=== PATIENT | female | born 1940 | race Caucasian/White ===

== ENCOUNTER → 2019-09-26 | Outpatient (CLI) | payer OTHER | LOC: HYPER 10:23 | DX: T81.89XD Other complications of procedures, not elsewhere classified, subsequent encounter (principal); E11.49 Type 2 diabetes mellitus with other diabetic neurological complication; E78.5 Hyperlipidemia, unspecified; E55.9 Vitamin D deficiency, unspecified; E66.09 Other obesity due to excess calories; D17.9 Benign lipomatous neoplasm, unspecified; D64.9 Anemia, unspecified; I87.2 Venous insufficiency (chronic) (peripheral); I11.0 Hypertensive heart disease with heart failure; I50.32 Chronic diastolic (congestive) heart failure; J69.0 Pneumonitis due to inhalation of food and vomit; J44.9 Chronic obstructive pulmonary disease, unspecified; K52.9 Noninfective gastroenteritis and colitis, unspecified; M51.9 Unspecified thoracic, thoracolumbar and lumbosacral intervertebral disc disorder; M12.869 Other specific arthropathies, not elsewhere classified, unspecified knee; F11.10 Opioid abuse, uncomplicated; F41.1 Generalized anxiety disorder; Z87.891 Personal history of nicotine dependence; Z79.84 Long term (current) use of oral hypoglycemic drugs; Y83.8 Other surgical procedures as the cause of abnormal reaction of the patient, or of later complication, without mention of misadventure at the time of the procedure ==

== ENCOUNTER 2019-10-18 16:13 | Inpatient (IN) | payer OTHER, MEDICARE ==
[~2019-10-18] VITALS: Ht 160 cm; Wt 106.3 kg
--- NOTE | ~2019-10-18 | EEG ---
[facility] [place] [address] ELECTROENCEPHALOGRAM Name: GERRI STANFORD Room #: 216-P [facility] IN M.R.#: [id number] Admission: 10/18/19 Attend Phys: Otto Vasquez MD Discharge: Date of : 42 Report #: [id number] THIS REPORT FOR: //name// CC: Luis Alberto Vasquez DATE OF SERVICE: 10/25/2019 This patient is being evaluated for altered mental status. EEG was done by placing the electrode by standard 10-20 system of electrode placement. The patient is not able to cooperate at all. A lot of artifact is present. Background activity in this patient's EEG is about 7 Hz and 30 microvolts. A lot of artifact is present. Photic stimulation is unremarkable. Some of the activity looked sharp, but is difficult to distinguish from the artifact. IMPRESSION: Very suboptimal EEG because the patient is unable to cooperate. EEG is abnormal, is consistent with encephalopathy or dementia, but some seizure activity cannot be ruled out because the patient is unable to cooperate. By: [id number] Varun Catalan MD /nt
--- NOTE | ~2019-10-18 | EMS ---
[address] [address] EMS Patient Care Report Name: GERRI STANFORD Room #: PRE MJohnathan.#: [id number] Admission: Attend Phys: Discharge: Date of : 42 Report #: [id number] THIS REPORT FOR: //name// Report Transmitted: 10/18/2019 16:13 EMS Care Summary [place], [place]/[facility] Incident [id number] @ 10/18/2019 15:32 Incident Location [address] [place] [address] Patient GERRI STANFORD Female, 79 Years 1940 Patient Address [address] [place] [address] Patient History Diabetes,Hypertension (HTN),Hyperlipidemia,Depression,Anxiety,Back Pain (Chronic), Patient Allergies No known allergies, Patient Medications Ativan, Alprazolam, Percocet, Amitriptyline, Meloxicam, Cymbalta, Hydrochlorothiazide (Hctz), Glipizide, Lisinopril, Toprol, Simvastatin, Chief Complaint PT BELIEVE FAMILY IS TRYING TO GET HER Disposition Transported No Lights/[place] Dispatch Reason Breathing Problem Transported To [facility] Narrative PT STATES THAT PT HAS HAD IT WITH HER FAMILY AND THAT THEY ARE TRYING TO GET HER. PT STATES THAT PT HAS PAON IN HER FEET AND IS SOA. PT STATES THAT PT IS [address] [address] EMS Patient Care Report Name: GERRI STANFORD Room #: [facility].#: [id number] Admission: Attend Phys: Discharge: Date of : 42 Report #: [id number] CHRONICALLY SOA. PT DENIES COUGH, PT DENIES FEVER. PT STATES IN ROUTE THAT SHE WOULD LIKE EMS TO CHECK THE CABINET TO MAKE SURE HER DAUGHTER IN LAY IS NOT HIDDING IN THEM. PT HAS NO OTEHR COMPLAINTS. P WAS FOUND SITTING ON A COUCH IN PT'S HOME. PT SPOKE IN FULL AND COMPLETE SENTENCES. PT IS ABLE TO STAND AND WALK TO THE AMBULANCE. PT HAS NO OTHER OBVIOUS ABNORMALITIES. Initial Vitals @15:58P: 223,SpO2: 92, @16:00P: 169,SpO2: 91, @15:55P: 113,R: 18,Pain: 0/10,GCS: 15,SpO2: 81, @15:56P: 153,R: 18,GCS: 14,Glucose: 130,SpO2: 91, @16:01P: 128,BP: 117/45,SpO2: 89, @15:48P: 101,BP: 177/80,SpO2: 92, Assessments @15:38MENTAL:Person Oriented,Time Oriented,Place Oriented,Event Oriented,SKIN:HEENT:Eyes: Left Pupil: 3-mm,Eyes: Right Pupil: 3-mm,Head/Face: No Abnormalities,Neck/Airway: No Abnormalities,LUNG SOUNDS:General: No Abnormalities,ABDOMEN:General: No Abnormalities,PELVIS//GI:EXTREMITIES:Capillary Refill: Right Upper: < 2 Sec,Left Arm: No Abnormalities,Right Arm: No Abnormalities,Left Leg: No Abnormalities,Right Leg: No Abnormalities,PULSE:Radial: 2+ Normal,NEURO:No Abnormalities, Impression Altered Mental Status Procedures @15:39ALS AssessmentResponse: UnchangedSucceeded@15:423-Lead ECGResponse: UnchangedSucceeded Timeline 15:31,Call Received 15:31,Dispatch Notified 15:32,Dispatched 15:33,En Route 15:37,On Scene 15:38,At Patient 15:39,ALS Assessment,Response: UnchangedSucceeded, 15:42,3-Lead ECG,Response: UnchangedSucceeded, 15:48,BP: 177/80 M,PULSE: 101,RR: R,SPO2: 92 Ox,ETCO2: ,BG: ,PAIN: ,GCS: , 15:54,Depart Scene 15:55,BP: / M,PULSE: 113,RR: 18 R,SPO2: 81 Ox,ETCO2: ,BG: ,PAIN: 0,GCS: 15, 15:56,BP: / M,PULSE: 153,RR: 18 R,SPO2: 91 Ox,ETCO2: ,B,PAIN: ,GCS: 14, [facility] [address] [place] [address] EMS Patient Care Report Name: GERRI STANFORD Room #: [facility].RTino#: [id number] Admission: Attend Phys: Discharge: Date of : 42 Report #: [id number] 15:58,BP: / M,PULSE: 223,RR: R,SPO2: 92 Ox,ETCO2: ,BG: ,PAIN: ,GCS: , 16:00,BP: / M,PULSE: 169,RR: R,SPO2: 91 Ox,ETCO2: ,BG: ,PAIN: ,GCS: , 16:01,BP: 117/45 M,PULSE: 128,RR: R,SPO2: 89 Ox,ETCO2: ,BG: ,PAIN: ,GCS: , 16:08,At Destination 16:12,Call Closed Disclaimer v1.1 Copyright 2020 [employer] This EMS Care Summary contains data elements from the applicable legal record (which may be displayed differently). It is designed to provide pertinent information for the following purposes: continuity of care, clinical quality, and state data reporting. The complete legal record is available to ED staff and administrators of the receiving hospital in [facility]'s Patient Tracker. All data is provided "as is."
--- NOTE | ~2019-10-18 | HC ---
[facility] [place] [address] CONSULTATION Name: GERRI STANFORD Room #: 216-P [facility] IN .R.#: [id number] Admission: 10/18/19 Attend Phys: Otto Vasquez MD Discharge: Date of : 42 Report #: [id number] THIS REPORT FOR: cc: Luis Alberto Lancaster MD, Bernard O. MD Khosla, Parveen K. MD ~ CC: Luis Alberto Vasquez DATE OF SERVICE: 10/25/2019 HISTORY OF PRESENT ILLNESS: A 79-year-old female patient who is unable to provide any history at all. In fact, the patient did not talk and had no verbal output during my evaluation. I tried to call the patient's son on the numbers I have in the chart. I was unable to reach them. Dr. Dietrich updated me on the patient's history. It looks like the patient was having symptoms for more than a week before she came in. It was mostly delusions and she was found to have a UTI and she is being treated, but I do not know the exact baseline mental status in this patient. She apparently was taking also some Xanax and Percocet. She came as hyponatremic and she is still somewhat hyponatremic. REVIEW OF SYSTEMS: A 14-point review of system was attempted. The patient is unable to provide any systemic history, it is all from the record and that is also limited, apparently has a history of diabetes, hypertension, depression, anxiety, back pain as I can get from the record, that was the relevant 14-point review of system. PAST MEDICAL History: Unavailable, but may be having symptoms suggestive of dementia. FAMILY HISTORY: Unavailable. SOCIAL HISTORY: She does have a son and I tried to contact him, but I was unable to reach him. PHYSICAL EXAMINATION: Indicates, she opens her eyes. She did not say a single word. She did not follow any command. She does appear to have some jerking, but they do not appear to be a rene convulsion. I cannot tell if she moves anything, I cannot tell a meningeal sign. She did not allow me to look at the fundus. She is obese individual. Her pulse is 99, temperature is 98, blood pressure is 163/71. Cardiac examination is unremarkable. She does have some respiratory difficulty. LABORATORY DATA: Indicated normal white count, but slightly low sodium; at one time, her magnesium was low. [address] [address] CONSULTATION Name: GERRI STANFORD Room #: 216-P [facility] IN [facility]#: [id number] Admission: 10/18/19 Attend Phys: Otto Vasquez MD Discharge: Date of : 42 Report #: [id number] IMPRESSION: Difficult to form in this patient because I cannot reach the patient's family. It would appear this patient has significant encephalopathy. We need to see how much dementia she has in the baseline and hopefully we can get some assessment of that after we talked to the patient's son. RECOMMENDATIONS: 1. EEG. 2. I agree with your plan that we may have to do an MRI and maybe an LP in this patient depending upon what history we get from the patient's son. Hopefully, he will call us back and we can discuss that. In the meantime, we will go ahead and get an EEG done. Thank you very much for this referral. By: [id number] Varun Catalan MD /nt
[2019-10-18 16:14] VITALS: BP 159/66
[2019-10-18 17:07] LABS: URINE BLOOD NEGATIVE (Negative); URINE CLARITY SL CLOUDY; URINE COLOR YELLOW; URINE GLUCOSE-RANDOM* NEGATIVE (Negative); URINE KETONES NEGATIVE (Negative); URINE NITRITE-REFLEX NEGATIVE (Negative); URINE PROTEIN (DIPSTICK) NEGATIVE (Negative); URINE SPECIFIC GRAVITY 1.025 (1.005-1.035); URINE UROBILINOGEN 0.2 E.U./dl (0.2-1.0)
[2019-10-18 17:13] LABS: URINE BILIRUBIN NEGATIVE (Negative); URINE LEUKOCYTES-REFLEX 1+ (Negative)
[2019-10-18 17:32] LABS: BACTERIA-REFLEX >30 Many /HPF (None Seen); CASTS None Seen /LPF (None Seen); CRYSTALS None Seen /LPF (None Seen); SQUAMOUS 4-10 Moderate /LPF (0-3); URINE WBC-REFLEX 6-15 Few /HPF (0-5)
[2019-10-18 17:33] LABS: URINE RBC 0-2 Rare /HPF (0-2)
[2019-10-18 18:01] LABS: HEMATOCRIT 37.6 % (37.0-47.0); MCH 27.2 pg (26.0-34.0); MCV 84.8 fL (80.0-100.0); PLATELET COUNT 187 thou/uL (150-400); RBC 4.43 mil/uL (4.20-5.00); RDW 15.5 % (10.5-14.5); WBC 6.7 thou/uL (4.0-11.0)
[2019-10-18 18:05] LABS: ANION GAP 6 mmol/L (7-16); BUN 31 mg/dL (7-18); CALCIUM 9.9 mg/dL (8.5-10.1); CHLORIDE 101 mmol/L (98-107); CO2 37 mmol/L (21-32); CREATININE 1.3 mg/dL (0.6-1.0); GLUCOSE 138 mg/dL (74-106); POTASSIUM 3.5 mmol/L (3.5-5.1); SODIUM 144 mmol/L (136-145)
[2019-10-18 18:16] LABS: ALBUMIN 3.6 g/dL (3.4-5.0); SGOT 29 U/L (15-37); SGPT 19 U/L (30-65); TOTAL BILIRUBIN 0.5 mg/dL (<0.1-1.0); TOTAL PROTEIN 6.9 g/dL (6.4-8.2); TROPONIN-I <0.06 ng/mL (<0.06)
[2019-10-18 18:56] LABS: ABSOLUTE NEUTROPHILS 4.1 thou/uL (1.4-8.2); ANISOCYTOSIS 1+; POLYCHROMASIA OCCASIONAL
[2019-10-18] MEDS ORDERED: BUSPIRONE HCL5 MG PO (19:39)
[2019-10-18] MEDS ORDERED: PERCOCET 7.5-31 EAC1 PO (19:40)
[2019-10-18] MEDS ORDERED: CELECOXIB200 MG PO (19:40)
[2019-10-18] MEDS ORDERED: ALPRAZOLAM 0.50.5 M1 PO (19:41)
[2019-10-18] MEDS ORDERED: DULOXETINE HCL60 MG PO (19:41)
[2019-10-18] MEDS ORDERED: ALPRAZOLAM1 MG PO (19:42)
[2019-10-18] MEDS ORDERED: HYDROCHLOROTHIA25 M2 PO (19:42)
[2019-10-18] MEDS ORDERED: LISINOPRIL2.5 MG PO (19:43)
[2019-10-18] MEDS ORDERED: GLIPIZIDE ER5 MG PO (19:43)
[2019-10-18] MEDS ORDERED: PIOGLITAZONE30 MG PO (19:44)
[2019-10-18] MEDS ORDERED: AMITRIPTYLINE H50 M2 PO (19:44)
[2019-10-18] MEDS ORDERED: FUROSEMIDE 40 M40 MG PO (19:45)
[2019-10-18] MEDS ORDERED: PREGABALIN25 MG PO (19:45)
[2019-10-18] MEDS ORDERED: SIMVASTATIN40 MG PO (19:46)
[2019-10-18] MEDS ORDERED: METOCLOPRAMIDE10 MG PO (19:46)
[2019-10-18] MEDS ORDERED: IPRAT-ALBUT 0.5-3 ML INH (19:47)
[2019-10-18] MEDS ORDERED: DULOXETINE HCL30 MG PO (19:50)
[2019-10-18 20:45] VITALS: BP 162/48
--- NOTE | 2019-10-18 20:57 | NUR ---
ATTEMPTED TO CALL REPORT TO CCU AND US STATES SHE WAS NOT AWARE OF THIS AND THERE IS NO NURSE ASSIGNED AND SHE WILL CALL THE HOUSE SUP AND CALL ER AFTER SHE GETS MORE INFO
[2019-10-18 21:59] VITALS: BP 162/48
[2019-10-18 22:39] VITALS: BP 155/74
--- NOTE | 2019-10-18 23:27 | NUR ---
PT ADMITTED FROM HOME. AOX2 PERSON AND SITUATION. PT PRESENTS WITH CONFUSION FOR THE LAST WEEK AND A COUGH. PT A POOR HISTORIAN. PT NOT ABLE TO STATE REASON FOR BEING AT HOSPITAL BUT STATED SHE HAS BEEN TO [facility] PREVIOUSLY. PT REQUESTED AND ASSISTED WITH CALLING HER SON IRA, PT TOLD IRA THAT [facility] IS EMPTYING OUT HER BANK ACCOUNT AND NOT LETTING HER USE HER CARE. PT PRESENTED WITH A RING ON MOST FINGERS, 6 ABLE TO BE REMOVED, 3 REMAIN ON DUE TO SWELLING. PT HAD ON 2 WRIST BRACELETS AND ONE ANKLE BRACELET. BRACELETS REMOVED AND WITH 6 RINGS IN PLASTIC BAG IN ROOM WITH CELL PHONE. PT IS IN ISOLATION FOR COVID R/O. LUNGS DIMINISHED, HR DISTANT, BLE EDEMA +2, PT OBESE, COUGH DRY. PT REPORTS USING A WALKER AT HOME BUT WAS NOT ABLE TO ASSIST WITH TRANSFER FROM ED CART TO BED. PT PRESENTED WITH INCONTINENCE BRIEF ON. BED ALARM ON. IVF INTACT.
--- NOTE | 2019-10-19 01:52 | NUR ---
PT REQUESTED HS MED FOR ANXIETY, PROVIDER NOTIFIED ORDER RECEIVED.
[2019-10-19 03:17] VITALS: BP 169/71
--- NOTE | 2019-10-19 03:31 | NUR ---
PT CALLED OUT FOR NURSE BY YELLING NURSE. PT STATED SHE PEED, FEMALE EXT CATH COLLECTED URINE. PT THEN STATED SHE COULD NOT BREATH, BY POINTING AT HER MOUTH AND MOUTHING WORDS. ROOM AIR 90%, 02 2L NC 94%. PROVIDER NOTIFIED. PT STATED SHE CAN NOT SLEEP BECAUSE SHE DID NOT HAVE HER BEDTIME MEDICATIONS. PT HAS BEEN OBSERVED SLEEPING DURING ROUNDS.
--- NOTE | 2019-10-19 04:58 | NUR ---
PT CALLED OUT FOR NURSE BY BANGING REMOTE ON SIDE RAIL. PT STATED THERE ARE LIGHTS GOING OFF IN HER ROOM, THAT SHE NEEDS TO GET UP AND OUT OF HERE. PT VERBALLY REDIRECTED THAT IT IS TO EARLY IN THE AM TO GO ANYWHERE AND THAT SHE NEEDS MORE ANTIBIOTICS.
--- NOTE | 2019-10-19 05:26 | NUR ---
PT WHEN IN ROOM ASKING STAFF NOT TO LEAVE HER ALONE. PT REDIRECTED WITH TV MOVIE.
[2019-10-19 06:10] LABS: CALCIUM 9.1 mg/dL (8.5-10.1)
[2019-10-19 06:12] LABS: POTASSIUM 2.9 mmol/L (3.5-5.1)
[2019-10-19 06:40] LABS: FOLIC ACID 15.2 ng/mL (8.6-58.9); TSH 1.871 uIU/mL (0.358-3.740)
[2019-10-19] MEDS ORDERED: DICLOFENAC SOD100 G1 TOP (08:07)
[2019-10-19] MEDS ORDERED: TOPROL XL50 MG PO (08:11)
[2019-10-19] MEDS ORDERED: PROTONIX40 M2 PO (08:12)
[2019-10-19] MEDS ORDERED: MIRALAX119 GM PO (08:13)
[2019-10-19] MEDS ORDERED: ASA81BEC PO (08:13)
[2019-10-19] MEDS ORDERED: LIPITOR 20 MG T20 M1 PO (08:14)
[2019-10-19] MEDS ORDERED: PULMICORT0.5 MG/2 M INH (08:14)
--- NOTE | 2019-10-19 08:16 | NUR ---
PATIENT FREQUENTLY YELLING OUT AT STAFF, CONFUSED. ORIENTED TO SELF ONLY. SPOKE WITH PATIENT FAMILY, VERIFIED PATIENT HISTORY AND MEDICATION RECONCILIATION. FAMILY REPORTS PATIENT HAS BECOME DIFFICULT TO CARE FOR. HAS HAD MULTIPLE FALLS SINCE LAST DISCHARGE FROM HOSPITAL AUGUST 2019. STATES THAT SHE WILL START WALKING AND THEN "GIVE UP AND DROP TO GROUND SUDDENLY." FAMILY STATES THAT PATIENT UNABLE TO CARE FOR SELF. REQUIRES ASSISTANCE FOR FOOD PREPARATION, BATHING, TOILETING, ETC. STATES THAT PATIENT BEHAVIOR HAS BEEN ERRATIC LATELY, PATIENT REFUSING MEDS, SECRETIVE WITH FAMILY, CALLING 911 FROM HOME BUT DID NOT TELL FAMILY. REPORTS THAT HAS A PCP- DR. MARCELO LITTLE, & PAIN MANAGEMENT PHYSICIAN - DR. TAYLOR. REPORTS THAT PAIN MANAGEMENT PHYSICIAN MANAGES PAIN & PSYCH MEDS. FALL PRECAUTIONS IN PLACE CURRENTLY, PATIENT DOES NOT USE CALL LIGHT APPROPRIATELY RATHER YELLS OUT FOR STAFF FROM ROOM. PATIENT NOT PROGRESSING TOWARDS GOALS FOR DISCHARGE.
[2019-10-19 08:40] VITALS: BP 190/88
--- NOTE | 2019-10-19 15:23 | NUR ---
ASSESSMENT: CM REVIEWED CHART AND SPOKE WITH ATTENDING. PT WAS ADMITTED DUE TO AMS AND IS COVID RULE OUT. PTS COVID TESTING IS STILL PENDING. CM ATTEMPTED TO REACH PATIENT VIA PHONE TO SEE IF SHE WAS ABLE TO ANSWER AND QUESTIONS BUT PT DID NOT ANSWER PHONE. CM ATTEMPTED TO REACH PATIENTS SON SREEDHAR WHO SHE LIVES WITH BUT NO ANSWER AT THIS TIME AND VM WAS LEFT. PT HAS BEEN TO [facility] IN THE PAST AND PER PAST REPORT PT IS LIVING AT HOME WITH HER SON AND DAUGHTER IN LAW. PT HAS A WALKER, WHEELCHAIR, AND CANE AT HOME FOR AMBULATION. FAMILY REPORTED TO BEDSIDE RN THAT PATIENT HAS BECOME HARD TO CARE FOR AND HAS BEEN VERY CONFUSED. PT HAS HAD [facility] IN THE PAST. CM CONTACTED [facility] AND THEY REPORT THEY DISCHARGED PATIENT IN JULY. PT HAS ALSO BEEN TO [facility] IN THE PAST. PTS PCP IS DR. MARCELO LITTLE AND SHE HAS A PAIN MANAGEMENT PHYSICIAN DR. TAYLOR. CM LEFT FOR FAMILY AND WAITING FOR A CALL BACK TO OBTAIN FURTHER INFORMATION/HISTORY ON PT AT THIS TIME. CM WILL CONTINUE TO FOLLOW TO ASSIST NEEDED.
[2019-10-19 16:14] VITALS: BP 163/93
[2019-10-19 18:52] VITALS: BP 220/130
--- NOTE | 2019-10-19 19:07 | NUR ---
MANUAL BP 220/134 PT GIVEN HS MEDS. HX HTN. NOT SYMPTOMATIC. LUNGS CLEAR, DIMINISHED BASES. HR REG, BS POSITIVE. OBESE. BLE EDEMA +2. IVF INTACT. FEMALE EXT CATH INTACT. PT ALERT TO SELF AND SITUATION. TALKING TO REMOTE AND SELF. CALM TONE. TWO PERSON ASSIST WITH TRANSFERS. BED ALARM ON. PT TRANSFERING TO [facility].
[2019-10-19 19:36] VITALS: BP 169/80
--- NOTE | 2019-10-19 19:50 | NUR ---
Daughter in law notified of room change to 216. Report given to 2N nurse. Pt had all of her belongings transferred with her including rings bracelets and cell phone.
[2019-10-19 23:14] VITALS: BP 177/59
[2019-10-20 04:26] VITALS: BP 155/79
[2019-10-20 05:36] LABS: HEMATOCRIT 34.5 % (37.0-47.0); HEMOGLOBIN 11.1 gm/dL (12.0-15.0); MCH 27.8 pg (26.0-34.0); MCHC 32.1 g/dL (28.0-37.0); MCV 86.6 fL (80.0-100.0); RBC 3.98 mil/uL (4.20-5.00); RDW 15.3 % (10.5-14.5); WBC 7.4 thou/uL (4.0-11.0)
[2019-10-20 05:50] LABS: CALCIUM 9.2 mg/dL (8.5-10.1); CREATININE 0.8 mg/dL (0.6-1.0)
[2019-10-20 06:02] LABS: POTASSIUM 4.6 mmol/L (3.5-5.1)
[2019-10-20 07:30] VITALS: BP 143/116
[2019-10-20 11:00] VITALS: BP 180/93
--- NOTE | 2019-10-20 13:56 | NUR ---
Case discussed with the care team. Hugo seeing and pt noted to be more confused today. Therapy evals pending. No response back from the pt's son yet. DC needs are uncertain pending her progress. Pt normally goes to [facility] for rehab and has had hh with [facility] in the recent past. She was at [facility] less than a month ago and had HH in July this year. She lives with her son and dtr in law and is normally a&ox3 and functional with assist device and supervision from family. Will follow.
[2019-10-20 16:00] VITALS: BP 168/69
--- NOTE | 2019-10-20 18:11 | NUR ---
ASSUMED CARE 0700. ALERT TO SELF ONLY, TALKS ABOUT HER GRANDDAUGHTER PATRICIA. REQUIRES [id number]. NOON MEAL WAS FOUND ON THE FLOOR. PT DENIED DUMPING MEAL. ASSISTED WITH REVENING MEAL ONLY EATING 10% OF MEAL. OFFERED APPLE JUICE FOR LOW BS.DR AMOR NOTIFIED OF ELEVATED BP PT REMAINS SYMPTOM FREE. RECHECK BP USING LOWER ARM WITH BP 157/71 VERSES 170/77 UPPER ARM. INCONITENT OF BLADDER REFUSES EXTERNAL FEMALE CATH. REPOSITIONED TOLERATED. DOES NOT CALL FOR ASSISTANCE. CLOSE TO NURSE STATION FOR OVERSIGHT.STAFF TO ANTICIPATE NEEDS. NSR ON TELE. BED ALARM ON. PERSONAL ITEMS AND CALL LIGHT IN REACH.
[2019-10-20 19:13] VITALS: BP 152/87
[2019-10-21 04:24] VITALS: BP 172/83
[2019-10-21 04:34] LABS: HEMOGLOBIN 10.7 gm/dL (12.0-15.0); MCH 27.7 pg (26.0-34.0); MCHC 32.3 g/dL (28.0-37.0); MCV 85.8 fL (80.0-100.0); RBC 3.85 mil/uL (4.20-5.00); RDW 15.4 % (10.5-14.5); WBC 6.7 thou/uL (4.0-11.0)
[2019-10-21 04:51] LABS: CALCIUM 9.1 mg/dL (8.5-10.1); CREATININE 0.7 mg/dL (0.6-1.0)
[2019-10-21 05:48] LABS: POTASSIUM 3.6 mmol/L (3.5-5.1)
--- NOTE | 2019-10-21 06:51 | NUR ---
PT A0X1. CONFUSED, AND AGITATION AT SOME POINT. DENIES CHEST PAIN. C/O OF BACK PAIN, BUT WHEN GIVEN MEDS, PT THROWS MEDS, REFUSES TO TAKE MEDS. UNABLE TO INTERVENE WITH OTHER RNs. WILL CONTINUE TO MONITOR.
[2019-10-21 07:30] VITALS: BP 182/87
[2019-10-21 11:00] VITALS: BP 157/73
--- NOTE | 2019-10-21 11:34 | NUR ---
PT A&OX2, DELUSIONS, VSS, DENIES PAIN. PATIENT REMOVED IV AND DOCTOR AWARE. PATIENT TOOK MOST OF MEDICATION THIS MORNING. PATIENT ANXIOUS ABOUT DISCHARGING, ABLE TO REDIRECT HALF OF TIMES. NO SIGNS OF DISTRESS. PATIENT CLOSE TO NURSE STATION, BED ALARM ON. WILL CONTINUE TO MONITOR.
[2019-10-21 16:18] VITALS: BP 176/85
[2019-10-21 19:46] VITALS: BP 187/87
[2019-10-22 00:45] VITALS: BP 154/66
[2019-10-22 04:45] VITALS: BP 158/66
--- NOTE | 2019-10-22 07:16 | NUR ---
ASSUME CARE 1900. PT/VITALS STABLE. INTERMITTENT BACK PAIN/DICLOFENAC FOR PAIN. PT IS A/O TO PERSON ONLY AND IMPULSIVE SOMETIMES. NEEDS REDIRECTION WITH TAKING MEDS AND OTHER ACTIVITIES. NO DISTRESS NOTED THROUGH THE NIGHT. MODERATE REST NOTED. ASSESSMENT CHARTED. PROGRESSING MODERATELY WITH POC. PLAN IS CONTINUE WITH ABX TREATMENT AND CONTINUE TO MONITOR LOC. WILL CONTINUE TO FOLLOW [facility] POC
[2019-10-22 08:00] VITALS: BP 169/71
[2019-10-22 11:38] VITALS: BP 192/95
--- NOTE | 2019-10-22 11:54 | EKG ---
[facility] [place] [address] ELECTROCARDIOGRAM REPORT Name: EGRRI STANFORD Room #: 216-P ADM IN M.R.#: [id number] Admission: 10/18/19 Attend Phys: Otto Vasquez MD Discharge: Date of : 42 Report #: [id number] THIS REPORT FOR: cc: Luis Alberto Lancaster MD, Bernard O. MD Couchonnal, Luis F. MD ~ THIS REPORT FOR: //name// [facility] Test Date: 2019-10-21 Test Time: 19:17:55 Pat Name: GERRI STANFORD Department: Room: 216 P Gender: F Carbonizer Tester: CYNDI : 1940 Requested By: Otto Vasquez Order Number: [id number] MD: Derrick Izquierdo Measurements Intervals [place] Rate: 103 P: 34 MI: 65 QRS: -12 QRSD: 106 T: 27 QT: 365 QTc: 478 Interpretive Statements Sinus tachycardia No previous ECG available for comparison Electronically Signed On 10-22-2019 11:53:16 CDT by Derrick Izquierdo [email or web address] <ELECTRONICALLY SIGNED> By: Derrick Izquierdo MD 10/22/19 1153 16 16 Derrick Izquierdo MD /EPI
--- NOTE | 2019-10-22 19:34 | NUR ---
PT ALERT AND ORIENTED TO SELF, PATIENT DELUSIONAL AND HAS VISUAL HALLLUCINATIONS. PATIENT IMPULSIVE, PATIENT CLOSE TO NURSE STATION AND BED ALARM ON. IV RIGHT BREAST REMAINS INTACT. BLOOD PRESSURE ELEVATED, HYDRALAZINE GIVEN PER ORDERS. PATIENT IN NO APPARENT PAIN, NO SIGNS OF DISTRESS. WILL CONTINUE TO MONITOR.
[2019-10-22 20:05] VITALS: BP 159/80
[2019-10-23 03:51] LABS: CALCIUM 9.8 mg/dL (8.5-10.1); CREATININE 0.6 mg/dL (0.6-1.0); POTASSIUM 3.3 mmol/L (3.5-5.1)
[2019-10-23 04:45] VITALS: BP 155/64
[2019-10-23 06:50] LABS: HEMATOCRIT 33.8 % (37.0-47.0); HEMOGLOBIN 10.9 gm/dL (12.0-15.0); MCH 27.2 pg (26.0-34.0); MCHC 32.2 g/dL (28.0-37.0); MCV 84.6 fL (80.0-100.0); RDW 15.6 % (10.5-14.5); WBC 7.2 thou/uL (4.0-11.0)
[2019-10-23 08:00] VITALS: BP 163/63
--- NOTE | 2019-10-23 09:08 | NUR ---
ASSUME CARE 1900. PT/VITALS STABLE. BP RUNS HIGH AT TIMES. INTERMITEENT PAIN IN BACK AND ANKLES. POORLY COMMUNICATES NEEDS. POOR TOLERANCE TO ACTIVITY. ASSESSMETN CHARTED. PROGRESSING SLOWLY WITH POC. REST NOTED WITH NO DISTRESS. PLAN IS TO CONTINUE WITH ABX AND MONITOR LEVEL OF CONCIOUSNESS. WILL CONTINUE TO MONITOR AND FOLLOW WITH POC
[2019-10-23 11:00] VITALS: BP 153/64
[2019-10-23 16:49] VITALS: BP 159/58
[2019-10-23 19:02] LABS: ABSOLUTE NEUTROPHILS 5.9 thou/uL (1.4-8.2); BASOPHILS 0.7 % (0.0-2.0); EOSINOPHILS 6.6 % (0.0-3.0); HEMOGLOBIN 11.4 gm/dL (12.0-15.0); LYMPHOCYTES 20.3 % (24.0-44.0); MCH 27.7 pg (26.0-34.0); MCHC 32.6 g/dL (28.0-37.0); MCV 85.1 fL (80.0-100.0); MONOCYTES 8.3 % (1.0-8.0); PLATELET COUNT 190 thou/uL (150-400); POLYS 64.1 % (36.0-66.0); RBC 4.12 mil/uL (4.20-5.00); RDW 15.6 % (10.5-14.5); WBC 9.1 thou/uL (4.0-11.0)
[2019-10-23 19:14] LABS: CALCIUM 9.3 mg/dL (8.5-10.1); CREATININE 0.5 mg/dL (0.6-1.0); POTASSIUM 4.4 mmol/L (3.5-5.1)
--- NOTE | 2019-10-23 19:20 | NUR ---
Assumed patient care at 0715. Vital signs stable, abdomen is soft and non-tender, BS x's 4, LSCTA (diminished), skin is clean, warm, dry and intact; she denies pain. Patient had an oral Temperature of 99.8 this am, she was given Tylenol 650mg po for this with effectiveness. Patient tried to hit this nurse x's two during am Assessment. Patient asks questions which don't make sense, answers this nurse's questions (again, not making sense). Am medications were crushed, put in applesauce. Patient spit some of the medications out, clenched her jaws tight. Patient was assisted back to bed several x's, as she kept trying to climb out of bed. Dr Vasquez informed about confusion and behaviors; to continue to monitor. Report given to MAURILIO Moy. behavior
--- NOTE | 2019-10-23 19:44 | NUR ---
PT CARE ASSUMED AT 1200. A&Ox4. PT UP AT SUNIL. SLEEPING MOST OF THE AFTERNOON. VITALS STABLE. RUNNING NSR WITH BB. IV PATENT WITH NO REDNESS OR EDEMA, SALINE LOCKED. DAILY WEIGHT AT 0500. HAD 2 LOOSE STOOLS TODAY. 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 FLUID RESTRICTIONS OF 1500ML. CALL CASE MANAGMENT WHEN PT GETS DC SO THEY CAN TAKE HIS SCRIPTS TO THE PHARMACY AND FILL A 30 DAY SUPPLY FOR THE PT. WILL CONTINUE TO MONITOR. CALL LIGHT IN REACH.
[2019-10-23 19:46] VITALS: BP 154/51
--- NOTE | 2019-10-23 19:48 | NUR ---
PT CARE ASSUMED AT 1200. A&Ox1 TO SELF. PT SOUNDED WHEEZY AND PUT ON 3L. AFTER AN HOUR BACK DOWN TO 2L BY RT. INCONTINENT TO B&B. MEDS GIVEN CRUSHED WITH A SPOON OF PUDDING IF ANY OTHER WAY SHE WILL BE COMBATITIVE. NSR WITH BOUTS OF SINUS TACHY. HYDRALIZINE ON BOARD FOR SBP OVER 160 THIS WAS GIVEN TWICE DURING THIS SHIFT. BILATERAL LOWER EDEMA +3. IV R. BREAST WITH NO REDNESS OR EDEMA. SALINE LOCKED. LOW GRADE TEMP RESOLVED. HALDOL PRN GIVEN AT 1800. NO AGITATION FROM 1200 TO 1800. ACHS WITH NO COVERAGE NEEDED TODAY. PT ON ELECTROLYTE PROTOCOL NOW. K 3.3 TREATED PER PROTOCOL AND RESOLVED WITH REDRAW. MAG 1.1 2 BAGS OF MAG GIVEN AWAITING REDRAW RESULTS. DAILY WEIGHT (CHF) PT IS HOME WITH SON BUT WILL NEED TO DO SKILLED OR FACILITY AFTER DISCHARGE. LUNGS CLEAR , DIMINISHED. CALL LIGHT IN RREACH. ALL 4 BED RAILS UP FOR PT SAFETY. Q1 ROUNDING. FALL PROTOCOL IN PLACE. WILL CONTINUE TO MONITOR. VOLTAREN GEL APPLIED FOR PAIN ON BACK AND LEGS.
[2019-10-24 05:05] VITALS: BP 155/58
[2019-10-24 08:00] VITALS: BP 141/54
--- NOTE | 2019-10-24 08:31 | NUR ---
PATIENT ALERT BUT CONFUSED.SPITS ALL HER MEDS LAST NIGHT AND REFUSED HER MEDS THIS MORNING.TRIED TO TAKE OFF HER O2 AND SOUNDS WHEEZY.BREATHING TREATMENT GIVEN BY RT.MONITOR SHOWS ST.POC CONTINUED.
--- NOTE | 2019-10-24 13:21 | NUR ---
Patient with confusion. Sp with hospitalist who reports needs for post acute care. Hospitalist reports patient unable to tolerate acute rehab. Sp with son Adelso and discussed. Plan referral to [facility] to review for skilled care.
--- NOTE | 2019-10-24 14:08 | NUR ---
FAXED REFERRAL TO [facility] SPOKE WITH JOCY IN ADM SHE RECEIVED REFERRAL AND WILL REVIEW. DP TO FOLLOW.
--- NOTE | 2019-10-24 17:01 | NUR ---
FAXED REFERRAL TO [facility] SPOKE WITH HUSAM IN ADM SHE RECEIVED REFERRAL AND WILL REVIEW. DP TO FOLLOW.
--- NOTE | 2019-10-24 18:48 | NUR ---
RECEIVED PT'S CARE AROUND 0710; PT. RESTING WITH EYES CLOSED; EQUAL CHEST RISING NOTICED; SR ON THE MONITOR; DURING AM ASSESSMENT PT. ALERT TO PERSON; NO APPARENT PAIN; RESTLESS; UNCOOPERATIVE; NEW IV STARTED BY IV TEAM; REFUSED BREAKFAST & LUNCH; ABLE TO HAVE AM MEDICATION AFTER WORKING FOR 45 MINS WITH PT.; PHYSICIAN NOTIFIED; PRN HALDOL GIVEN; ABLE TO SWALLOW PILLS; AROUND 1400 BS 55; PRN IV MEDICATION GIVEN; PHYSICIAN NOTIFIED; NO NEW ORDERS; DURING DINNER PT. ATE ABOUT 10%; PHYSICIAN NOTIFIED; ORDERS RECEIVED; SR-ST ON THE MONITOR; ASSESSMENT CHARGED; FOLLOWING POC; WILL PASS ON REPORT;
[2019-10-24 20:48] VITALS: BP 182/63
[2019-10-25 00:18] VITALS: BP 111/78
[2019-10-25 05:05] VITALS: BP 145/76
[2019-10-25 05:46] LABS: CALCIUM 9.3 mg/dL (8.5-10.1); CREATININE 0.6 mg/dL (0.6-1.0); POTASSIUM 3.2 mmol/L (3.5-5.1)
--- NOTE | 2019-10-25 06:23 | NUR ---
pt restless and uncooperative at start of shift repositioned and let rest, crushed meds in pudding and after much encouragement pt swallowed pills, refused and liquids, no c/o pain , vss except bp elevated and prn hydralizine given, pt alert to self and usually will follow directions, will con't to monitor per ppoc.
[2019-10-25 08:00] VITALS: BP 163/71
--- NOTE | 2019-10-25 10:10 | NUR ---
Received asleep on bed, easily rousable then goes back to sleep. Due medications given as prescribed, crushed and mixed with apple sauce. A+O to self, confused, may be combative at times. On heart monitoring- SR-ST; no complaints of chest pain, crushing and heaviness sensation. With O2 at 2lpm via nasal cannula. On carb controlled diet- pt refused breakfast this am, physician informed; encouraged and assisted in eating and drinking. On blood sugar monitoring- taken and recorded; with sliding scale insulin ordered- given as prescribed. With external female chin in place- output measured and recorded accordingly; checked frequently and changed as needed with on and off incontinence. with D5 at 75cc/hr, infusing well at R FA, wrapped with coban. With bruises on her upper and lower extremities. With generalized edema, non weeping noted. Assisted in ADLs. Still a/w placement. With orders to shift IVF from D5 to NS + 20meq KCL- IVF shifted. To continue monitoring patient.
--- NOTE | 2019-10-25 13:12 | NUR ---
[facility] not accepting for post acute care. Sp with son and referral to [facility]. They are able to accept once stable and bed avail. Called son and left message to discuss.
--- NOTE | 2019-10-25 14:53 | NUR ---
FAXED TODAY'S PT NOTES SPOKE WITH HUSAM IN ADM SHE RECEIVED NOTES. DP TO FOLLOW.
[2019-10-25 16:00] VITALS: BP 145/85
[2019-10-25 21:52] VITALS: BP 131/118
--- NOTE | 2019-10-26 03:26 | NUR ---
ASSUMED PATIENT CARE AT 1845. VITAL SIGNS STABLE WITH NURSE NOT PERCEIVING ANY PAIN OR NAUSEA ON BEHALF OF PATIENT. ORIENTED TO SELF ONLY, PATIENT IS UNABLE TO CALL APPROPRIATELY OR ACTIVELY PARTICIPATE IN CARE. BREATHING STABLE EVIDENCED BY ASSESSMENT AND SPOT OXYGENATION CHECKS. PATIENT TURNED FREQUENTLY WITH SKIN CARE PROVIDED. CONTINUE PLAN OF CARE.
[2019-10-26 04:45] VITALS: BP 116/61
[2019-10-26 07:20] VITALS: BP 155/86
--- NOTE | 2019-10-26 12:06 | NUR ---
Received awake on bed. A+O to self only, confused. On O2 at 2lpm via nasal cannula. On heart monitoring- running SR-ST; no complaints of chest pain, crushing sensation and heaviness, no visual signs of noted as well. On carb controlled diet- tried feedng pt but clenchs her teeth and pushes me away from her; encouraged and assisted in eating and drinking. Due medications given as prscribed, crushed and mixed with apple sauce. On blood sugar monitoring, taken and recorded accordingly; with sliding scale insulin ordered- given as prescribed. With external chin in place- output measured and recorded accordingly; checked regularly and changed as needed. Assisted in ADLs. Dr. Dietrich informed re: increased confusion, refusing to eat and with observed tremors on upper then lower extremities this morning- to informed Dr Wills/Dr Bond. With NS + Kcl at 80cc/hr, infusing well at R AC- wrapped in Coban, pt has tendency to pull IV off. Still a/w placement. To continue monitoring patient.
[2019-10-26 12:57] LABS: HEMATOCRIT 30.5 % (37.0-47.0); HEMOGLOBIN 9.9 gm/dL (12.0-15.0); MCH 27.2 pg (26.0-34.0); MCHC 32.4 g/dL (28.0-37.0); MCV 84.1 fL (80.0-100.0); RBC 3.62 mil/uL (4.20-5.00); RDW 15.5 % (10.5-14.5); WBC 6.4 thou/uL (4.0-11.0)
[2019-10-26 13:21] LABS: CALCIUM 8.9 mg/dL (8.5-10.1); CREATININE 0.6 mg/dL (0.6-1.0); MAGNESIUM 1.4 mg/dL (1.8-2.4); POTASSIUM 3.4 mmol/L (3.5-5.1)
--- NOTE | 2019-10-26 16:11 | NUR ---
Attempted to contact Everardo Chang. Left message yesterday and today. Usually leave message and he returns call to unit. He has not returned call as of yet.
[2019-10-26 16:30] VITALS: BP 150/107
[2019-10-26 18:32] LABS: URINE BILIRUBIN 1+ (Negative); URINE BLOOD NEGATIVE (Negative); URINE CLARITY CLEAR; URINE GLUCOSE-RANDOM* NEGATIVE (Negative); URINE KETONES 1+ (Negative); URINE LEUKOCYTES NEGATIVE (Negative); URINE NITRITE NEGATIVE (Negative); URINE PROTEIN (DIPSTICK) NEGATIVE (Negative); URINE SPECIFIC GRAVITY 1.025 (1.005-1.035); URINE UROBILINOGEN 0.2 E.U./dl (0.2-1.0)
[2019-10-26 18:34] LABS: ICTOTEST (BILI CONFIRMATORY) Positive (Negative); URINE COLOR AMBER
[2019-10-26 19:45] VITALS: BP 104/80
--- NOTE | 2019-10-26 20:13 | NUR ---
PATIENT IS LETHARGIC AND UNABLE TO TOLERATE ORAL MEDICATIONS SAFELY.
--- NOTE | 2019-10-26 23:56 | NUR ---
CARE TRANSFERRED TO [facility].
[2019-10-27] VITALS (7 sets, daily range): BP systolic 110–157; BP diastolic 38–115
[2019-10-27 05:20] LABS: CALCIUM 8.5 mg/dL (8.5-10.1); CREATININE 0.4 mg/dL (0.6-1.0); MAGNESIUM 1.4 mg/dL (1.8-2.4); POTASSIUM 4.3 mmol/L (3.5-5.1)
--- NOTE | 2019-10-27 06:38 | NUR ---
ASSUMED PT CARE AROUND 0000. LETHARGIC BUT AROUSABLE AND REACTS TO PAINFUL STIMULI. VSS. NO S/S ACUTE DISTRESS NOTED OR REPORTED AT THIS TIME. WILL CONT TO MONITOR FOR ANY CHANGES IN CONDITION.
[2019-10-27 08:27] LABS: HEMATOCRIT 28.8 % (37.0-47.0); HEMOGLOBIN 9.3 gm/dL (12.0-15.0); MCH 27.4 pg (26.0-34.0); MCHC 32.2 g/dL (28.0-37.0); RBC 3.39 mil/uL (4.20-5.00); RDW 15.9 % (10.5-14.5); WBC 6.5 thou/uL (4.0-11.0)
--- NOTE | 2019-10-27 10:41 | NUR ---
Pt had MRI this am and results are pending. Neuro was able to talk with the pt's son and dtr in law. They will advise if they wish to have LP done as well for neuro workup. [facility] of OP SNF has evaluated and awaiting additional imput regarding her plan of care before making a decision. Will follow.
--- NOTE | 2019-10-27 19:49 | NUR ---
ASSUMED CARE 0700. ORRIENT TO SELF ONLY. LOW BS TREATED WITH DEXTROSE 10%. POOR NUTRIONAL INTAKE. ST CHANGED DIET TO PUREE AND NECTOR LIQUIDS C ASSIT WITH FEEDING. CONFUSION NOT IMPROVING. GENERAL EDEMA SLOW TO IMPROVE. MRI COMPLETED C NO ACUTE PROCESS. BECOMES FUSSY AND TELLS 'STOP" WHEN BOTHERED, WILL STATE SHE IS READY TO GO HOME. MAX ASSISTANCE. DENIES PAIN, DENIES SOB. FALL PRECAUTION IN PLACE. CLOSE TO NURSE STATION FOR OVERSITE. STAFF TO ANTCICPATE NEEDS.
[2019-10-28] VITALS (11 sets, daily range): BP systolic 106–173; BP diastolic 4–83
--- NOTE | 2019-10-28 02:55 | NUR ---
PATIENT ASSESSED AND IS ALERT X 1. SKIN WARM AND DRY. RESP EVEN AND UNLABORED. PATIENT IS M/S TELE. TEL- SHOWS NSR WITH 1ST DEGREE AV BLOCK. DENIES ANY PAIN.TURNS BUT REFUSED UNTIL 0130. EDEMA NOTED REMAINS ON BEDREST.HAS MULTIPLE BRUSING ALL OVER. IS WITHDRAWN AND CONFUSED. CRUSHED MED AND SWOLLOWS WELL. GUZMAN CATH PATENT. HAS GENERAL EDEMA NOTED 2+. IV SITE HEALTHY AND HAS FLUIDS INFUSING WELL. DID TAKE HER MEDS TONIGHT. BS 98. HAS WEAKNESS NOTED. TAKES NECTAR THICKEN FLUIDS. HAS RIGHT FA HEALTHY LOOKING. REMAINS AMS. CONT PLAN OF CARE.
[2019-10-28 08:45] LABS: HEMATOCRIT 29.1 % (37.0-47.0); HEMOGLOBIN 9.3 gm/dL (12.0-15.0); MCH 26.9 pg (26.0-34.0); MCHC 31.9 g/dL (28.0-37.0); MCV 84.3 fL (80.0-100.0); RBC 3.45 mil/uL (4.20-5.00); RDW 15.6 % (10.5-14.5)
[2019-10-28 08:46] LABS: CREATININE 0.5 mg/dL (0.6-1.0); MAGNESIUM 1.6 mg/dL (1.8-2.4); POTASSIUM 3.8 mmol/L (3.5-5.1)
[2019-10-28 08:51] LABS: INR 1.1; PROTIME 11.5 Seconds (9.3-11.4)
[2019-10-28 12:57] LABS: CSF GLUCOSE 84 mg/dL (40-70); CSF PROTEIN 41 mg/dL (15-45)
[2019-10-28 13:07] LABS: CSF RBC 705 /mm3; CSF WBC 9 /mm3 (0-10)
[2019-10-28 13:08] LABS: VOLUME 8 ml
[2019-10-28 13:09] LABS: CSF CLARITY CLEAR; CSF COLOR COLORLESS
--- NOTE | 2019-10-28 14:00 | NUR ---
Nutrition: PO intake minimal/poor > 1 week. Dsyphagia with modified diet/100% assist required. Nsg reports pt clamps down on spoon frequently. S/P lumbar puncture. May consider changing IVFs to Clinimix PPN until po improves or terminal computer operator nutrition plan determined.
--- NOTE | 2019-10-28 15:58 | NUR ---
Pt getting LP today. Mental status a little better per nursing. Nursing has spoken with pt's dtr in law Rosetta and deepa Snyder. Pt's son Everardo PAL at work. Update given to [facility]. No weekend dc anticipated. [facility] will need updated on Thursday and to check their bed status.
[2019-10-28 16:07] LABS: HIV ANTIBODY Non Reactive (Non Reactive)
--- NOTE | 2019-10-28 16:35 | NUR ---
ASSUMED CARE 0700. ALERT X2 MORE AWAKE TODAY AND TALKATIVE. SCHEDULED SPINAL TAB/ LUMBAR PUNCTURE COMPLETED REQUIRED A 2 NURSE VERBAL SPOKE WITH REAGAN MUNIR PT'S NIECE AND DELIO PT'S DAUGHTER IN LAW WHOSE SON IS THE DPOA WHO WAS AWARE OF THE NEED TO SPINAL. DR VERA SPOKE WITH MITZY KIRK ON THE PHONE TO UPDATE PT'S STATUS. RESULTS PENDING. FOLLOWING POST PUCTURE CARE PER ORDERS. TREATED ELEVATE BM AND PAIN WITH PRN MEDICATIONS. ONE TIME LASIX GIVEN. DR BECERRA NOTIFIED OF BM ELEVATIONS. PT VOIDING IMPROVED FROM YESTERDAY GREATER THEN 1200CC AT THIS TIME. NO PLANS TO DC AT THIS TIME. PT UNABLE TO DEMONSTRATE CALL LIGHT USE. STAFF TO ANTICIPATE NEEDS. BED ALARM SET
[2019-10-29 04:08] VITALS: BP 145/72
--- NOTE | 2019-10-29 05:05 | NUR ---
Assumed pt care at 1900. Pt is alert and confused. Pt stated that she wanted to talk to her family. RN spoke to pt's son who said that pt called stating that she was ready to go home. Pt is stable. Denies any pain. Assessment completed and documented. Scheduled meds administered to pt. Tolerated PO intake. Pt sleeps through the night.Turns completed. Continue to monitor pt. Denies any further needs at this time.
[2019-10-29 05:18] LABS: HEMATOCRIT 28.3 % (37.0-47.0); HEMOGLOBIN 9.3 gm/dL (12.0-15.0); MCH 27.9 pg (26.0-34.0); MCHC 33.1 g/dL (28.0-37.0); MCV 84.6 fL (80.0-100.0); RBC 3.35 mil/uL (4.20-5.00); RDW 15.7 % (10.5-14.5); WBC 7.3 thou/uL (4.0-11.0)
[2019-10-29 05:27] LABS: CALCIUM 9.2 mg/dL (8.5-10.1); CREATININE 0.6 mg/dL (0.6-1.0); MAGNESIUM 1.8 mg/dL (1.8-2.4); POTASSIUM 3.4 mmol/L (3.5-5.1)
[2019-10-29 07:15] VITALS: BP 139/51
[2019-10-29 09:02] LABS: ALBUMIN 2.2 g/dL (3.4-5.0); DIRECT BILIRUBIN 0.1 mg/dL (<0.1-0.2); TOTAL BILIRUBIN 0.5 mg/dL (<0.1-1.0); TOTAL PROTEIN 5.8 g/dL (6.4-8.2)
[2019-10-29 11:11] VITALS: BP 108/56
[2019-10-29 17:20] VITALS: BP 146/58
--- NOTE | 2019-10-29 17:41 | NUR ---
ASSUMED CARE 0700. ALERT X3 WITH FORGETFULNESS, VOICED SHE IS AFRAID HER FAMILY DOES NOT KNOW SHE IS AT THE HOSPITAL. NEUROLOGY ROUNDED STATED PT HAS DEMENCIA. PRIMARY DOCTOR MARIAM ORDERED MEDICATIONS FOR CONSTIPATION. NO BM NOTED AT THIS TIME. NRS ON TELE. COMPIANT WITH CARES. TURNS Q2H TOLERATED. NYSTATIN POWDER PLACED UNDER BREAST FOLDS. FALL PRECAUTIONS IN PLACE. CALL LIGHT IN REACH. STAFF TO ANTICIPATE NEEDS.
[2019-10-29 19:30] VITALS: BP 142/72
[2019-10-30] VITALS (7 sets, daily range): BP systolic 136–156; BP diastolic 58–75
--- NOTE | 2019-10-30 05:39 | NUR ---
ASSUMED PT CARE AT 1900. PT IS VERY DROWSY AND SLEEPING. NO SIGN OF DISTRESS NOTED. PT IS AROUSABLE TO COMMAND, ORIENTED TO SELF. NO SIGN OF DISTRESS NOTED IN PT. SCHEDULED MEDS ADMINISTERE TO PT. TOLERTED PO INTAKE. PT HAD BOWEL MOVEMENT. CONTINUE TO MONITOR PT, DENIES ANY FURTHER NEEDS AT THIS TIME.
[2019-10-30 09:09] LABS: CALCIUM 9.2 mg/dL (8.5-10.1); CREATININE 0.5 mg/dL (0.6-1.0); MAGNESIUM 1.5 mg/dL (1.8-2.4); POTASSIUM 3.7 mmol/L (3.5-5.1)
--- NOTE | 2019-10-30 17:42 | NUR ---
PT CARE ASSUMED AT SHIFT CHANGE. PT ASSESSMENTS CHARTED. PT MEDICATIONS CHARTED. PT IS RESPONSIVE. PT HAS POOR APPETITE, BUT DOES DRINK WHATS OFFERED. PT COMPLAINS OF CONSTIPATION, BUT DOES HAVE SMALL LOOSE BM'S. PT PULLED RAC IV, IV THERAPY PLACED LT WRIST IV, WRAPPED.
[2019-10-31] VITALS (7 sets, daily range): BP systolic 144–156; BP diastolic 69–82
--- NOTE | 2019-10-31 05:21 | NUR ---
ASSUMED PT CARE AT 1900,PT IS AWAKE ALERT AND ORIENTEDX3, MAKES NEEDS KNOWN, SR ON THE MONITOR, COMPLAINED OF PAIN ON HER LOWER BACK, MEDICATED WITH DICLOFENAC AND TYL PRN WITH PARTIAL RELIEF, TOOK MEDICATION ORDERED, VSS, ASSESSMENTS CHARTED, PLEASANT AND RESTING IN BED, NO DISTRESS NOTED, WILL CONTINUE TO MONITOR
--- NOTE | 2019-10-31 12:22 | NUR ---
Spoke with patient via phone and son Everardo. Patient appears more alert and able to converse regarding dc planning. Patient has been at [facility] in past and agreeable to 5N eval. Patient may now be able to tolerate acute rehab. Therapy evals in process. [facility] plan if unable to be accepted to 5N.
[2019-10-31 13:08] LABS: CSF VDRL Non Reactive (Non Rea:<1:1)
--- NOTE | 2019-10-31 15:08 | PATH ---
[facility] Nadira Ford [place] [address] PATHOLOGY RPT PROCEDURE Name: GERRI STANFORD Room #: 216-P ADM IN M.R.#: [id number] Admission: 10/18/19 Date of : 44 Discharge: Report #: [id number] Path Case #: [id number] Note LCA Accession Number: [id number] TESTS RESULT FLAG UNITS REF RANGE LAB Clinician Provided Cytology Information No. of containers..01 Other (Miscellaneous) Source: CSF DIAGNOSIS: 02 CSF NEGATIVE FOR MALIGNANT EPITHELIAL CELLS. SCANT CELLULARITY. RARE LYMPHOCYTES IDENTIFIED. NEGATIVE FOR VIRAL INCLUSIONS OR PARASITIC ORGANISMS. Pathologist ICD10: 02 R41.82 Signed out by: Carole Miller MD, Pathologist NPI- [id number] Performed by: Mary Kay Márquez, Furniture Sales Associate ([facility]) Gross description: 01 2 ML, CLEAR COLORLESS, 1 TP /LCS 10/28/2019 1651 Local FLAG LEGEND: L-Low Normal,H-High Normal,LL-Alert Low,HH-Alert High <-Panic Low,>-Panic High,A-Abnormal,AA-Critical Abnormal Performed at: [address] [place] [address] Manuel Ty MD, [address] [address] Carole Miller MD, Performed at: [address], [place], [place] [id number] MD Manuel Ty MD Phone: [phone]
--- NOTE | 2019-10-31 17:58 | NUR ---
PT CARE ASSUMED AT 0700. ASSESSMENTS CHARTED. MEDICATION CHARTED. PT MENTAL STATUS HAS IMPROVED. AO X 4. KUB COMPLETE, NO OBTRUCTION. PT CONTINUES TO HAVE LOOSE STOOLS. PT APPETITE IS STILL POOR. PT TO CHAIR FOR TWO HOURS, MADE IT BACK TO BED WITH ASSIST X 1 AND WALKER. PT COMPLAINS OF LOWER BACK PAIN.
[2019-10-31 22:07] LABS: SYPHILIS AB Non Reactive (Non Reactive)
[2019-11-01 04:45] VITALS: BP 150/66
[2019-11-01 08:00] VITALS: BP 178/72
--- NOTE | 2019-11-01 09:12 | NUR ---
ASSUMED CARE OF PT AT SHIFT CHANGE: SLEEPING, VERY LETHARGIC, TRENDELENDBERG TO REPOSITION UP HIGHER IN BED FOR MEDS AND BFAST. THEN SHE OPENED EYES AND ANSWERED QUESTIONS. VERY WEAK HAND ORACLE TECHNICAL ARCHITECT, VERY EDEMATOUS ALL OVER, CLEAR LUNG SOUNDS, SHALLOW INSPIRATIONS, ENCOURAGED W/DEEP SLOW EFFECTIVE BREATHING. A&0X3, THOUGHT PRESIDENT WAS LOUIS. SLOW TO ANSWER, SMILED WHEN WE TALKED ABOUT HER NIGHT NURSE, ROSENDO. SAID SHE HAD FIVE CHILDREN, LOST TWO. AGAIN, SLOW TO RESPOND, SHOWS LITLE INTEREST IN BFAST. EDUCATION GIVEN ON STRENGTH GAINED IF SHE CAN INGEST. ALL ITEMS OPENED, SHE CAN HOLD THE OJ WHEN ASKED YET JUST SHOWS NO INTEREST. SEE SEPARATE INTERVENTIONS FOR ASSESSMENTS. WILL CONTINUE TO MONITOR
[2019-11-01 10:08] LABS: ANA INTERPRETATION Negative (Negative)
[2019-11-01 12:00] VITALS: BP 155/76
[2019-11-01] MEDS ORDERED: VITAMIN D325 MCG PO (12:39)
[2019-11-01] MEDS ORDERED: ENOXAPARIN40 MG/0.1 SUBQ (12:39)
[2019-11-01] MEDS ORDERED: MAGOX 400400 MG PO (12:39)
[2019-11-01] MEDS ORDERED: DEXAMETHASO0.1 MG/M1 IM (12:39)
[2019-11-01] MEDS ORDERED: SENNA-TIME S T1 EACH PO (12:39)
[2019-11-01] MEDS ORDERED: ACYCLOVIR SODI500 MG IV (12:43)
--- NOTE | 2019-11-01 13:37 | NUR ---
DISCHARGE: WHEN ABLE WILL GATHER PT AND HER BELONGINGS AND TRANSFER UP TO 5N. SHE'LL BE RECEIVING IV MEDS SO WILL LEAVE IV INTACT, AND REMOVE TELE. GIVING REPORT TO 5N RN.
--- NOTE | 2019-11-01 13:59 | NUR ---
Discussed with patient she is accepted to 5N. Patient wanted to think things over. Returned call to patient in room later. She reports she is agreeable to transfer to 5N today. Left message with son to call casemgt.
[2019-11-03 14:28] LABS: HSV PCR SOURCE CSF
== END 2019-11-01 15:58 | DRG 682 ==
LOC: ER 16:13 → EROBS 18:44 → 2N 18:44 → 3W 18:44 → 2N 10-19 19:16
PROVIDERS: Emergency Medicine; Internal Medicine; Nurse Practitioner Family; Psychiatry & Neurology Psychiatry; Specialist; ADMIT Hospitalist
PROC: B01B1ZZ Fluoroscopy of Spinal Cord using Low Osmolar Contrast (ICD-10-PCS; principal; 2019-10-28)
PROC: 009U3ZX Drainage of Spinal Canal, Percutaneous Approach, Diagnostic (ICD-10-PCS; principal; 2019-10-28)
DX: N17.0 Acute kidney failure with tubular necrosis (principal); G92 Toxic encephalopathy; N39.0 Urinary tract infection, site not specified; E87.1 Hypo-osmolality and hyponatremia; Z68.41 Body mass index [BMI] 40.0-44.9, adult; F39 Unspecified mood [affective] disorder; E11.9 Type 2 diabetes mellitus without complications; I10 Essential (primary) hypertension; E78.5 Hyperlipidemia, unspecified; F32.9 Major depressive disorder, single episode, unspecified; F41.9 Anxiety disorder, unspecified; R41.0 Disorientation, unspecified; E55.9 Vitamin D deficiency, unspecified; F03.90 Unspecified dementia, unspecified severity, without behavioral disturbance, psychotic disturbance, mood disturbance, and anxiety; E87.6 Hypokalemia; K59.00 Constipation, unspecified; R13.10 Dysphagia, unspecified; G89.29 Other chronic pain; M54.9 Dorsalgia, unspecified; E66.9 Obesity, unspecified; I77.6 Arteritis, unspecified; Z20.828 Contact with and (suspected) exposure to other viral communicable diseases; Z79.82 Long term (current) use of aspirin; Z79.899 Other long term (current) drug therapy
CPT/HCPCS: 10081; 10879

== ENCOUNTER 2019-11-01 14:52 | Inpatient (IN) | payer OTHER, MEDICARE ==
[~2019-11-01] VITALS: Ht 157.5 cm; Wt 112.9 kg
--- NOTE | ~2019-11-01 | H ---
[facility] [place] [address] HISTORY AND PHYSICAL Name: GERRI STANFORD Room #: 503-P ADM IN M.R.#: [id number] Admission: 11/01/19 Attend Phys: Kendrick Yang MD Discharge: Date of : 44 Report #: [id number] THIS REPORT FOR: cc: Luis Alberto Lancaster MD, Bernard O. MD Smithson,Kendrick Davis MD ~ CC: Luis Alberto Yang DATE OF SERVICE: 11/01/2019 HISTORY AND PHYSICAL AND POSTADMISSION PHYSICIAN EVALUATION HISTORY OF PRESENT ILLNESS: The patient is a 79-year-old white female originally admitted to [facility] on 10/18/2019 with mental status changes, delusions. Family was concerned. She underwent an LP revealing elevated RBC, but normal protein. She had an elevated sed rate. Infectious Disease and Neurology are involved. She was placed on dexamethasone and IV acyclovir until HSV PCR results back. Concerns for vasculitis per Neurology. She was initially treated with antibiotics for urinary tract infection, but culture returned negative and antibiotics were stopped. Psychiatry was also involved and she has had several medications changes and her mentation has improved. Per family report, she is typically alert and oriented x 3. MRI of the brain showed no acute changes. Psychiatry has continued to follow as the patient has a prior history of depression. They note that she has decreased insight into how cognitively impaired she was. Infectious Disease is continuing the patient on the acyclovir awaiting HSV testing from CSF. Syphilis antibodies were noted to be negative. The patient has had a significant functional decline from her premorbid status and has now been admitted for acute in-hospital inpatient rehabilitation. PAST MEDICAL HISTORY: Prior medical history includes diabetes mellitus, hypertension, hyperlipidemia, depression, anxiety, back pain, exogenous obesity. MEDICATIONS: Please see the full medication listing. ALLERGIES: No known drug allergies. SOCIAL HISTORY: The patient lives with her son and [id number] in a house. She notes that they live with her. No steps in, ranch style. Son works outside of the home, but the [id number] is there and can assist. She used a front-wheeled walker and was independent with ADLs. Family provides IADLs. REVIEW OF SYSTEMS: Does not like the Winkler catheter. No chest pain, shortness of breath or abdominal discomfort. She was not aware that she was told she had swallowing issues. She is on a pureed nectar thickened liquid diet as per [address] [address] HISTORY AND PHYSICAL Name: GERRI STANFORD Room #: 503-P [facility]#: [id number] Admission: 11/01/19 Attend Phys: Kendrick Yang MD Discharge: Date of : 42 Report #: [id number] speech therapy recommendations. PHYSICAL EXAMINATION: GENERAL: The patient is 79-year-old obese white female in no obvious distress. VITAL SIGNS: Last recorded temperature 98.6, pulse 98, respirations 18, blood pressure 137/72. NEUROLOGIC: She is alert, definite latency to her responses, but will follow basic 1 step commands. She has decreased insight into her deficits. HEENT: Facies appeared symmetric. CHEST: Sounded clear to auscultation. CARDIOVASCULAR: Regular rate and rhythm. ABDOMEN: Obese, bowel sounds positive, nontender. GENITOURINARY AND RECTAL: She does have the indwelling Winkler catheter. EXTREMITIES: She has functional range of motion of both upper extremities. Strength is probably a grade 3+/5. Lower extremities, nonpitting edema. Strength is probably grade 3+/5. No obvious foot drop. Tone appeared to be intact. She is probably at least a 3+/5, bilateral lower extremity strength. Sit to stand has been mod assist and she has been able to take a few steps mod assist with a front-wheeled walker to the chair. She does have significant exogenous obesity. Last recorded height 5 feet 2 inches, weight 249 pounds. The patient is on nasal prong O2, 2 liters. ASSESSMENT: A 79-year-old female with the following problem list: 1. Toxic metabolic encephalopathy. 2. Elevated sedimentation rate with possible vasculitis. On acyclovir as per Infectious Disease. 3. Dysphagia, currently on pureed nectar. Speech therapy to follow. 4. Medical ____ with generalized debilitation. 5. Chronic back pain. 6. Type 2 diabetes mellitus. 7. Hypertension. 8. Obesity. 9. Documentation of underlying dementia. PLAN: The patient is admitted for acute in-hospital inpatient rehabilitation. From a postadmission physician evaluation perspective, there are no relevant changes since the preadmission screening. Please see the above review of prior and current medical and functional conditions and comorbidities. Please see the patient's previous and current functional status. As far as risk of complications, the patient has multiple medical comorbidities as noted above. Initial plan of care involves the interdisciplinary acute inpatient rehabilitation program. Measurable functional goals would be for the patient to become modified independent with transfers, mobility, ADLs, swallowing and cognition or at least improved cognition to the point where she is at a functional level where she can return back to the home setting. Prognosis is reasonably good with estimated length of stay probably 10 days to [address] [address] HISTORY AND PHYSICAL Name: GERRI STANFORD Room #: 503-P ADM IN ..#: [id number] Admission: 11/01/19 Attend Phys: Kendrick Yang MD Discharge: Date of : 44 Report #: [id number] potentially longer. Potential barriers would include her multiple medical comorbidities and decreased functional status. The patient meets diagnostic criteria for an acute in-hospital inpatient rehabilitation stay. She meets medical necessity criteria. We will have the sap consultant physicians continue to follow. She does have the tolerance for therapies and has appropriate discharge goals back to the home setting. By: [id number] Kendrick Yang MD /nt
--- NOTE | ~2019-11-01 | PLAN ---
[facility] [place] [address] REHAB UNIT PLAN OF CARE Name: GRERI STANFORD Room #: 503-P ADM IN M.R.#: [id number] Admission: 11/01/19 Attend Phys: Kendrick Yang MD Discharge: Date of : 44 Report #: [id number] THIS REPORT FOR: //name// CC: Luis Alberto Yang DATE OF SERVICE: 11/04/2019 PROGRESS NOTE/OVERALL PLAN OF CARE SUBJECTIVE: The patient was seen earlier today in no distress. Temperature 36.6, pulse 90, respirations 18, and blood pressure 151/64. She has been working in therapies with sit to stand, standby assistance. We are monitoring her lower extremity lymphedema. She has been able to ambulate up to 50 feet contact guard with a front-wheeled walker. She is max assist, lower body dressing. She does have moderate memory and cognitive deficits that are noted. Appreciate Neurology followup. They note that her encephalopathy has improved. She continues on acyclovir and she is on steroids. ASSESSMENT: 1. Metabolic encephalopathy. 2. Elevated sedimentation rate with possible vasculitis. 3. Medical complex with generalized debilitation. 4. Dysphagia. The patient is seen by Speech Therapy and is on a mechanical soft, thin liquid diet. 5. Chronic back pain. 6. Diabetes mellitus type 2. 7. Hypertension. 8. Underlying dementia. 9. Obesity. PLAN: The overall plan of care is based on the preadmission screen, post-admission physician evaluation and information garnered from therapy assessments. 1. Estimated length of stay is probably at least 7-10 days. 2. Medical prognosis is reasonably good. 3. Anticipated interventions includes the interdisciplinary acute inpatient rehabilitation program. 4. Anticipated functional outcomes would be for the patient to improve with mobility and ADLs as well as overall cognition so that she can achieve prior functional level with the front-wheeled walker to improve as far as overall cognition and swallowing issues. 5. Discharge destination would be back home with son and [id number]. 6. Expected therapy by discipline includes PT, OT and speech 1 hour per day [address] [address] REHAB UNIT PLAN OF CARE Name: GERRI STANFORD Room #: 503-P [facility] IN M.R.#: [id number] Admission: 11/01/19 Attend Phys: Kendrick Yang MD Discharge: Date of : 44 Report #: [id number] each five days a week throughout the duration of the acute inpatient rehabilitation stay. By: [id number] Kendrick Yang MD /PMT
[~2019-11-01 14:52] MED LIST: ACYCLOVIR SODI500 MG IV; ALPRAZOLAM 0.50.5 M1 PO; ALPRAZOLAM1 MG PO; AMITRIPTYLINE H50 M2 PO; ASA81BEC PO; BUSPIRONE HCL5 MG PO; CELECOXIB200 MG PO; DEXAMETHASO0.1 MG/M1 IM; DICLOFENAC SOD100 G1 TOP; DULOXETINE HCL30 MG PO; DULOXETINE HCL60 MG PO; ENOXAPARIN40 MG/0.1 SUBQ; FUROSEMIDE 40 M40 MG PO; GLIPIZIDE ER5 MG PO; HYDROCHLOROTHIA25 M2 PO; IPRAT-ALBUT 0.5-3 ML INH; LIPITOR 20 MG T20 M1 PO; LISINOPRIL2.5 MG PO; MAGOX 400400 MG PO; METOCLOPRAMIDE10 MG PO; MIRALAX119 GM PO; PERCOCET 7.5-31 EAC1 PO; PIOGLITAZONE30 MG PO; PREGABALIN25 MG PO; PROTONIX40 M2 PO; PULMICORT0.5 MG/2 M INH; SENNA-TIME S T1 EACH PO; SIMVASTATIN40 MG PO; TOPROL XL50 MG PO; VITAMIN D325 MCG PO
--- NOTE | 2019-11-01 17:40 | NUR ---
ADMITTED TO ROOM 503. PATIENT IS ALERT AND ORIENTED X4. PATIENT WADE'S, SELECT BANKER ARE EQUAL. LUNGS ARE CLEAR AND DEMINISHED. ABD IS SOFT WITH BSX4. PATIENT HAS 3+ EDEMA IN HER LOWER EXTREMITIES. UP IN RECLINER FOR MEALS. S.L. PATIENT AND INTACT IN PATIENTS LEFT FORARM. ABD IS SOFT WITH BSX4. FALL AND SAFETY PROTOCOLS IN PLACE. C/O LOWER BACK PAIN. MEDICATED WITH SCED OINTMENT. PLAN P.T., S.T. , O.T. WILSON IN A.M. WILL CONTINUE TO MONITER.
[2019-11-01 19:13] VITALS: BP 174/71
[2019-11-01 23:24] VITALS: BP 137/72
--- NOTE | 2019-11-02 03:13 | NUR ---
Assumed pt care at 1900. A/OX4,BP elevated at HS 174/71 medicated with scheduled BP meds and effective 137/72. Pt's up with AX2, RW/GB,unsteady and weak gait. C/o right knee pain/headache, order obtained for Tylenol from Niurka MAHONEY and administered with relief reported. Winkler to DD with yellow urine noted. Edema 3+ on BLE elevated when laying down. Refuses to put SCDs at this time. Fall precautions implemented,pt calls apropp. Resting quietly oxygen in place @2L/NC will continue to monitor pt.
[2019-11-02 06:22] LABS: HEMATOCRIT 30.7 % (37.0-47.0); HEMOGLOBIN 10.1 gm/dL (12.0-15.0); MCH 27.1 pg (26.0-34.0); MCHC 32.8 g/dL (28.0-37.0); MCV 82.5 fL (80.0-100.0); RBC 3.72 mil/uL (4.20-5.00); RDW 15.2 % (10.5-14.5); WBC 6.3 thou/uL (4.0-11.0)
[2019-11-02 06:38] LABS: CREATININE 0.6 mg/dL (0.6-1.0); POTASSIUM 3.8 mmol/L (3.5-5.1)
[2019-11-02 08:00] VITALS: BP 96/61
--- NOTE | 2019-11-02 09:58 | NUR ---
ASSUMED CARE AT 0700. PAITENT IS ALERT AND ORIENTED X3. PATIENT WADE, FISH FLIPPER ARE EQUAL. LUNGS ARE CLEAR AND DEMINISHED. 02 AT 2L PER N/C. ABD IS SOFT WITH BSX4. PATIENT HAS GUZMAN TO DD, DRAINING PATTI COLORED URINE WITH SEDIMENT. N.P. HERE TO SEE PATIENT. UP IN W/C FOR MEALS. PATIENT HAS 3+L.E. EDEMA. FALL AND SAFETY PROTOCOLS IN PLACE. C/O CHRONIC BACK, KNEE PAIN. MEDICATED WITH PRN PAIN MEDS. CONTINUES TO PROGRESS TOWARDS D/C GOALS. WILL CONTINUE TO MONITER.
[2019-11-02 11:59] LABS: URINE BILIRUBIN NEGATIVE (Negative); URINE BLOOD 3+ (Negative); URINE CLARITY CLOUDY; URINE COLOR YELLOW; URINE GLUCOSE-RANDOM* NEGATIVE (Negative); URINE KETONES NEGATIVE (Negative); URINE NITRITE-REFLEX NEGATIVE (Negative); URINE PROTEIN (DIPSTICK) NEGATIVE (Negative); URINE UROBILINOGEN 0.2 E.U./dl (0.2-1.0)
[2019-11-02 12:00] LABS: URINE LEUKOCYTES-REFLEX 3+ (Negative)
--- NOTE | 2019-11-02 12:10 | NUR ---
Case opened to follow for dc planning. Pt known to cm from previous admissions. Pt normally goes to [facility] for rehab and has [facility] for HH followup. She lives with her son Everardo Kevin Jr (Adelso) and dtr in law Rosetta. Adelso works and is often not able to take calls during the work day. Message left for him or DIL Rosetta to contact cm to discuss dc planning needs and to see what concerns or questions they may have. The pt has a rwalker, w/c and cane at home. When they spoke with Neuro on acute care, they noted her memory has declined and she has been requiring more supervision assist with adl's. They provide for all IADL's. The pt is currently on o2 at 2liters. [facility] to be contact for likely restart of care when ready for dc home from rehab. [facility] OP SNF may be an option for a SNF stay if needed ;however the pt's goal is to return home with hh at md. Pt's son brought some of her clothing and cell wire wrapping machine operator by for her last night. Will followup with pt's family regarding any barriers or questions they may have. Dc plan at this time is to return home with family and hh services. Pt's mental status is improving and she is able to participate in dc planning converstaion via phone. Will follow.
[2019-11-02 12:11] LABS: CASTS None Seen /LPF (None Seen); SQUAMOUS 4-10 Moderate /LPF (0-3)
[2019-11-02 12:12] LABS: BACTERIA-REFLEX >30 Many /HPF (None Seen); CRYSTALS None Seen /LPF (None Seen); URINE RBC >20 Many /HPF (0-2); URINE WBC-REFLEX >25 Many /HPF (0-5)
[2019-11-02 12:13] LABS: YEAST-REFLEX Present (None Seen)
--- NOTE | 2019-11-02 13:27 | NUR ---
FAXED REFERRAL TO [facility] SPOKE WITH WALLY IN INTAKE SHE RECEIVED REFERRAL AND CAN ACCEPT AT DC. DP TO FOLLOW.
[2019-11-02 13:28] VITALS: BP 137/72
[2019-11-02 19:10] VITALS: BP 152/80
[2019-11-03 00:07] LABS: GLYCOHEMOGLOBIN (HGB A1C) 5.7 % (4.8-5.6)
--- NOTE | 2019-11-03 02:00 | NUR ---
TRAZADONE TWICE AT HS, PATIENT DENIES SLEEPING. TURNED TO LEFT SIDE WITH ASSIST AND PILLOW AT BACK WITH LEGS ELEVATED AND WRAPPED. INFORMED OF CATHETER REMOVAL LATER THIS MORNING.
[2019-11-03 08:00] VITALS: BP 157/58
--- NOTE | 2019-11-03 18:43 | NUR ---
ASSUMED CARE OF PT AT 0700. PT IS A&OX4, FLAT AFFECT, AND FORGETFUL. PT REPORTS PAIN, PO MEDICATIONS PROVIDED PER ORDERS. GUZMAN CATHETER REMOVED PRIOR TO SHIFT CHANGE AND PT VOIDED WITH NO RESIDUAL NOTED ON BLADDER SCAN. REPORTED NAUSEA FOLLOWING BREAKFAST, TREATED WITH PO MEDICATIONS. REPORTS POOR SLEEP OVERNIGHT. IV TO LEFT WRIST PATENT. ACCU CHECKS ACHS. FALL PRECAUTIONS IN PLACE AND NURSING WILL CONTINUE TO MONITOR.
[2019-11-03 19:41] VITALS: BP 149/61
--- NOTE | 2019-11-04 00:44 | NUR ---
PT ASSESSMENT COMPLETED AND VSS. MEDS GIVEN ORDERED AND WELL TOLERATED. FALL PRECAUTIONS IN PLACE. VOIDING MODERATE AMOUNT OF YELLOW URINE. ASST WITH REPOSITION FOR COMFORT. PT DID NOT WANT A GOWN AT BEDTIME. SLEEPING AND PAIN MEDICATION WORKING WELL. PT SLEEPING. WILL CONTINUE TO MONITOR FREQUENTLY.
[2019-11-04 07:20] VITALS: BP 151/64
--- NOTE | 2019-11-04 19:20 | NUR ---
ASSUMED CARE OF PT AT 0700. PT IS A&OX4 AND VITAL SIGNS ARE STABLE. PT APPEARED SEDATED THIS AM AND SLEPT THROUGH PHYSICAL ASSESSMENT. GRIMICE WITH PAINFUL STIMULI. ACCU CHECKS ACHS. IV TO LEFT WRIST PATENT. PT ENCOURAGED TO DRINK FLUIDS. PT INCONTINENT, STATED THAT SHE WAS ABLE TO RECOGNIZE THAT SHE WAS INCONTINENT IN BRIEF, BUT DID NOT WANT TO GET UP AT THAT TIME TO BE CHANGED. PAIN MANAGED WITH PO MEDICAITONS. PER LYMPHEDEMA THERAPIST PT REFUSED TO ALLOW FOR WRAPS TO BE REPLACED THIS SHIFT. FALL PRFECAUTIONS IN PLACE AND NURSING WILL CONTINUE TO MONITOR.
[2019-11-04 19:55] VITALS: BP 133/59
--- NOTE | 2019-11-05 03:47 | NUR ---
ASSUMED CARE APPROX 1900 EVENING 11/03. PT ALERT AND ORIENTED X4, SITTING UP IN RECLINER AT CHANGE OF SHIFT. PT REFUSED TO TAKE STOOL MEDS STATING SHE HAD "A BLOWOUT A COUPLE DAYS AGO". PT INCONTINENT OF URINE ASSISTED WITH BRIEF CHANGE AND INTO BED. PT TOOK HS MEDS WITH WATER TOLERATING WELL. PT APPEARS TO BE SLEEPING SOUNDLY WITH HOURLY ROUNDING. BED ALARM ON AND CALL LIGHT IN REACH. WILL CONTINUE TO MONITOR.
[2019-11-05 07:52] VITALS: BP 145/68
--- NOTE | 2019-11-05 10:51 | NUR ---
ASSUMED CARE AT 0700. PATIENT IS ALERT AND ORIENTED X4. PATIENT WADE'S, LIFE TESTER OUTBOARD MOTORS ARE EQUAL. LUNGS ARE CLEAR. ABD IS SOFT WITH BSX4. MIRALAX GIVEN FOR NO BM X3 DAYS. PT UP IN W/C AND OUT TO DINING ROOM FOR MEALS. S.T. HERE TO EVAL PATIENTS SWALLOWING. MEDS GIVEN WITHOUT DIFFICULTY SWALLOWING. PATIENT C/O BACK AND KNEE PAIN. MEDICATED WITH PRN PAIN MED. PATIENT C/O NAUSEA. PATIENT MEDICATED WITH PRN ANTIEMETIC. FALL AND SAFETY PROTOCOLS IN PLACE. C/O PAIN ABOVE, WITH ABOVE TX. UP WITH ASSIST OF 1 STAFF WITH GAIT BELT AND WALKER. WILL CONTINUE TO MONITER.
[2019-11-05 19:58] VITALS: BP 132/52
--- NOTE | 2019-11-06 01:10 | NUR ---
ASSUMED CARE AT APPROX 1900 EVENING 11/04. PT LYING IN BED AT CHANGE OF SHIFT DOZING OFF AND ON WITH HEAD OF BED ELEVATED. PT AWOKE TO TAKE HS MEDS WITH NO PROBLEMS AND THEN PT WENT BACK TO SLEEP. PT APPEARS TO BE SLEEPING SOUNDLY WITH HOURLY ROUNDING CHECKS. BED ALARM ON AND CALL LIGHT IN REACH. WILL CONTINUE TO MONITOR.
[2019-11-06 07:31] VITALS: BP 150/71
--- NOTE | 2019-11-06 16:02 | NUR ---
ASSUMED CARE AROUND 0700, PT A&O X 4, NO ACUTE CHANGES NOTED. VSS, O2 ON 2L VIA NC. PT C/O BACK PAIN RELIEVED WITH PRN NORCO. ALSO HAS ANASTASIYA VOLTERAN GEL. MEDS GIVEN PER ORDERS, PARTICIPATED IN ANASTASIYA THERAPIES. BG ACHS WITH SS NEEDED. INCONTINENT OF B&B, LARGE BM TODAY, BROWN AND SOFT. PT SLEEPING IN BED, CALL LIGHT WITHIN REACH, WILL CONTINUE TO MONITOR PER POC.
[2019-11-06 19:22] VITALS: BP 132/52
--- NOTE | 2019-11-06 23:13 | NUR ---
PT ASSESSMENT COMPLETED AND VSS. MEDS GIVEN ORDERED AND WELL TOLERATED. FALL PRECAUTIONS IN PLACE. SLEEPING MEDICATION WORKING WELL. ASST WITH REPOSITION FOR COMFORT. SAT WNL ON 2L NC. INC OF LARGE AMOUNTS OF URINE. MAAME CARE PROVIDED. SLEEPING WELL. WILL CONTINUE TO MONITOR FREQUENTLY.
[2019-11-07 06:02] LABS: HEMOGLOBIN 10.5 gm/dL (12.0-15.0); MCH 26.8 pg (26.0-34.0); MCHC 31.9 g/dL (28.0-37.0); MCV 84.1 fL (80.0-100.0); PLATELET COUNT 317 thou/uL (150-400); RBC 3.92 mil/uL (4.20-5.00); RDW 15.9 % (10.5-14.5); WBC 11.2 thou/uL (4.0-11.0)
[2019-11-07 06:17] LABS: CALCIUM 8.9 mg/dL (8.5-10.1); CREATININE 0.6 mg/dL (0.6-1.0); MAGNESIUM 2.2 mg/dL (1.8-2.4); POTASSIUM 4.4 mmol/L (3.5-5.1)
[2019-11-07 07:20] VITALS: BP 122/70
[2019-11-07 11:16] LABS: ABSOLUTE NEUTROPHILS 7.6 thou/uL (1.4-8.2); ANISOCYTOSIS 1+; METAMYELOCYTES 7 %; MYELOCYTES 3 %
--- NOTE | 2019-11-07 18:56 | NUR ---
ASSUMED CARE OF TP AT 0700. PT IS A&OX4 AND VITAL SIGNS ARE STABLE. PT IS MORE EXPRESSIVE THIS SHIFT AND SAYS THAT SHE FEELS LESS DEPRESSED TODAY. PT DID REPORT SOME CONCERNS ABOUT ANTI-DEPRESSANT MEDICATIONS THIS EVENING PRIOR TO SHIFT CHANGE, INFORMED PT WILL DISCUSS WITH PROVIDER. PT REPORTED PAIN, MANGED WITH PO MEDICATIONS, PARTICIPATED IN SCHEDULED THERAPIES. ACCU CHECKS ACHS. FALL PRECAUTIONS IN PLACE AND NURSING WILL CONTINUE TO MONITOR.
--- NOTE | 2019-11-07 23:41 | NUR ---
PT ASSESSMENT COMPLETED AND VSS. MEDS GIVEN ORDERED AND WELL TOLERATED. FALL PRECAUTIONS IN PLACE. UP TO THE BATHROOM EARLY DURING THE SHIFT. INC OF URINE. PRN PAIN MEDICATION HELPFUL. PT ANXIOUS TO GO HOME SOON. ASST WITH REPOSITION AND MAAME CARE. SLEEPING. WILL CONTINUE TO MONITOR FREQUENTLY.
[2019-11-08 07:10] VITALS: BP 142/81
--- NOTE | 2019-11-08 13:48 | NUR ---
team meeting, recommendation: going to need assist with adl's at home. will need to see how much assistance vs supervision son and daughter in law can provide. if family can, dc 11/15 hh ( pt, ot, st, nursing ) family training. outpt neuro pysch [phone] 3m post dc if family would like pt eval. raza oquendo hh.
--- NOTE | 2019-11-08 16:57 | NUR ---
[facility] CAN ACCEPT AT DC SPOKE WITH SIDNEY THAT DC DATE IS 11/15 AND PT WILL NEED PT, OT, ST, NURSING. DP TO FOLLOW
--- NOTE | 2019-11-08 19:48 | NUR ---
ASSUMED CARE OF PT AT 0700. PT IS A&OX4 AND VITAL SIGNS ARE STABLE. PT REPORTED PAIN, MANAGED WITH PO MEDICAITONS, PARTICIPATED IN SCHEDULED THERAPIES. ACCU CHECKS ACHS. PT UPSET THIS EVENING BECAUSE SHE STATES THAT SHE WANTED TO GO HOME BY END OF THIS WEEK AND STAETD THAT SHE ONLY AGREED TO STAY FOR 2 WEEKS. WHEN EXPLAINED TO HER THAT DISCHARGE GOAL IS FOR NEXT THURSDAY WHICH WOULD BE 2 WEEKS ON REHAB SHE BEGAN TO CRY AND SAID "MY SON WILL COME AND PICK ME UP AND I WILL JUST LEAVE." EXPLAINED TO PT THE REASON FOR CONTINUING THERAPY LONG POSSIBLE. PT CONTINUES TO SAY THAT IF SHE IS NOT ALLOWED TO LEAVE OVER WEEKEND THEN SHE WILL LEAVE AMA, BUT THAT SHE WILL DISCUSS CONCERNS WITH IN [place]. FALL PRECAUTIONS IN PLACE AND NURSING WILL CONTINUE TO MONITOR.
[2019-11-08 19:50] VITALS: BP 138/48
--- NOTE | 2019-11-09 03:31 | NUR ---
TRANSFER TO BED WITH 1P ASSIST AFTER INCONTINENT OF URINE. DECLINED LAXATIVES, HAD BM 11/06. TOLERATING MEDS ALL AT ONCE WITH COLD WATER. TURN TO RIGHT SIDE AND HAS BEEN SLEEPING WELL. DISCUSSED BLOOD SUGAR OVER 200 IS PROBABLY RELATED TO PREDNISONE AND THAT SUGARS WILL NORMALIZE A LITTLE AFTER FINISHING PREDNISONE TAPER.
[2019-11-09 07:40] VITALS: BP 131/58
--- NOTE | 2019-11-09 15:57 | NUR ---
ASSUMED CARE OF PT AT 0700. PT IS A&OX4 AND VITAL SIGNS ARE STABLE. PT REPORTS PAIN, MANAGED WITH PO MEDICAITONS. HEATING PAD ORDERED FOR PAIN MANAGEMENT BETWEEN MEDICAITON DOSES. ACCU CHECKS ACHS. REFUSED BOWEL MEDS, BOWEL SOUNDS ACTIVE IN ALL QUADRANTS, REGULAR BOWEL MOVEMENTS REPORTED. BARRIER CREAM APPLIED TO BUTTOCKS WITH TOILETING. PT REPORTS INCREASED ANXIETY AND DEPRESSION ABOUT ANTICIPATED DISCHARGE DATE, DR LOYA VISITED WITH PT, ENCOURAGING PT TO PARTICIPATE AND RECOGNIZING PROGRESS MADE. PT ENCOURANGED TO CONTACT FAMILY ON PHONE BETWEEN THERAPY SESSIONS. FALL PRECAUTIONS IN PLACE AND NURSING WILL CONTINUE TO MONITOR.
[2019-11-09 17:06] VITALS: BP 145/48
[2019-11-09 19:42] VITALS: BP 136/64
--- NOTE | 2019-11-10 02:53 | NUR ---
ASSUMED CARE OF PT AT 1900HRS. PT TRANSFERRED FROM CHAIR TO BED WITH 1P ASSIST. PT IS INCT. PT REFUSED STOOL SOFTENERS. LBM 11/08. PT WAS COVERED FOR A FSBS OF 191. O2 VIA NC CONTINUED AT 2L PER HOME RGIMEN. PT WAS ABLE TO GET COMFORTABLE AND SLEEP PART OF THE SHIFT. VSS AND NO S/S OF ACUTE DISTRESS. WILL CONTINUE TO MONITOR.
[2019-11-10 08:00] VITALS: BP 142/62
--- NOTE | 2019-11-10 14:23 | NUR ---
ASSUMED CARES AT 0700. PT AWAKE, ALERT AND ORIENTED*4. FLAT AFFECT. DENIES PAIN. C/O INDIGESTION, REFUSED LAXATIVES AND STOOL SOFTENORS. ABDOMEN SOFT, OBESE WITH ACTIVE BS, LAST REPORTED BM 11/08. LS CLEAR/ DIMINISHED, ON 2L VIA NC WITH SATS >94%. LYPHEDEMA WRAPS ON BLE REMAIN DRY AND INTACT. NYSTATIN POWDER APPLIED TO GROIN AREA. PT UP WITH 1 MOD ASSIST GB AND WALKER. Q1H VISUAL CHECKS. CALL LIGHT WITHIN REACH. FALL PRECAUTIONS IN PLACE
[2019-11-10 19:02] VITALS: BP 172/67
--- NOTE | 2019-11-11 02:54 | NUR ---
INCONTINENT OF LARGE AMOUNT YELLOW URINE. TURNED TO LEFT SIDE AND MOISTURE BARRIER WITH Z-GUARD APPLIED TO REDDENED MID BUTTOCKS. SLEEPING WELL OTHERWISE WITH 02 2L. STATES SHE IS DEPRESSED AND WISHES SHE COULD GO HOME SOONER THAN 11/15, IS GETTING STRONGER AND CAN STAND WITHOUT ASSIST. DECLINED OFFFER OF HS SNACK AT TIME OF INSULIN ADMINISTRATION, TAPERING OFF PREDNISONE, LYMPHEDEMA WRAPS INTACT, VOLTAREN TO LOW BACK.
[2019-11-11 07:41] VITALS: BP 142/55
--- NOTE | 2019-11-11 07:49 | NUR ---
ASSUMED CARES AT 0700. STILL SLEEPY THIS AM. DENIES PAIN. PT DENIES PAIN. LAST BM WAS YESTERDAY. REFUSED LAXATIVES AND STOOL SOFTENERS. ABDOMEN SOFT, OBESE WITH ACTIVE BS, LAST BM WAS YESTERDAY, INCONT 3X LAST NIGHT PER NIGHT RAN. LS CLEAR/ DIMINISHED, ON 2L VIA NC WITH SATS >99%. LYPHEDEMA WRAPS ON BLE REMAIN DRY AND INTACT. NYSTATIN POWDER APPLIED TO GROIN AREA, BUT IT IS CLEAR NOW. PT UP WITH 1 MOD ASSIST GB AND WALKER. OFFERED SUPPORTIVE CARE. ENCOURAGED PT TO VOICE HER NEEDS. BS 96, NO INSULIN GIVEN. CONTINUE TO BE ON MECHANICAL SOFT, NO STRAW, MEDS TAKE ONE AT THE TIME IN APPLE SAUCE.CONTINUE TO Q1H VISUAL CHECKS FOR NEEDS AND SAFETY. INCONT BLADDER WILL OFFER TOILETING FREQUENTLY. CALL LIGHT WITHIN REACH. FALL PRECAUTIONS IN PLACE.
[2019-11-11 08:00] VITALS: BP 142/55
[2019-11-11 20:40] VITALS: BP 122/68
--- NOTE | 2019-11-11 23:51 | NUR ---
ASSUMED CARE ON 11/11/19 @ 1900, SITTING IN CHAIR IN ROOM, 2L O2 NC SPO2 99%, LYMPHEDEMA WRAP C/D/I TO LOWER EXTREMITIES, TOES +3 EDEMA BILAT. HRRR, LUNGS CTA, MOVING AIR BILAT. ABD N X 4 Q REFUSED SENNA/DOCUSATE SODIUM AND MIRILAX. REPORTS SOFT FORMED BM TODAY. UP WITH MINIMUM ASSIST WITH WALKER. NYSTATIN POWDER APPLIED UNDER BREASTS AND GROIN. HYDROCODONE PRN PROVIDED FOR PAIN @ 20:59. ACUCHECK 180, 3 U SLIDING SCALE COVERAGE PROVIDED. IN BED EYES CLOSED, RESPIRATIONS EVEN AND UNLABORED, BED ALARM SET, BED IN LOW POSITION, WILL CONTINUE HOURLY ROUNDING.
[2019-11-12 07:15] VITALS: BP 123/53
--- NOTE | 2019-11-12 09:01 | NUR ---
ASSUMED CARE AT 0700. PATIENT IS ALERT AND ORIENTED X4. PATIENT WADE, MIRROR FRAMER ARE EQUAL. LUNGS ARE CLEAR AND DEMINISHED. ABD IS SOFT WITH BSX4. PAIIENT IS UP WITH ASSIST OF 1 STAFF AND GAIT BELT. PATIENT UP IN BED FOR MEALS. PATIENT HAS LYMPHEDEMA WRAPS IN PLACE TO HER LOWER EXTREMITIES. DENIES PAIN AT THIS TIME CONTINUES TO PROGRESS SLOWLY TOWARDS D/C GOALS. WILL CONTINUE TO MONITER.
[2019-11-12 19:42] VITALS: BP 129/47
--- NOTE | 2019-11-12 23:06 | NUR ---
PT ALERT AND ORIENTED X 4. VINNIE WRAPS C/D/I TO BILAT LE'S. PT REFUSED LAXATIVES AT HS. LISINOPRIL HELD AT HS PER PARAMETERS. PT DENIES PAIN OR DISCOMFORT. BED ALARM ON FOR SAFETY. PT APPEARS TO BE SLEEPING ON HOURLY ROUNDS.
[2019-11-13 07:15] VITALS: BP 146/60
--- NOTE | 2019-11-13 10:08 | NUR ---
ASSUMED CARE AT 0700. PATIENT IS ALERT AND ORIENTED X4. PATIENT IS [place]. PATIENT WADE'S, EXPLOSIVES HANDLER ARE EQUAL. LUNGS ARE CLEAR. ABD IS SOFT WITH BSX4. REFUSED LAXATIVES. LAST BM ON 11/12/19. PLAN NOC OX STUDY TONIGHT. FALL AND SAFETY PROTOCOLS IN PLACE. DENIES PAIN AT THIS JOYCE. CONTINUES TO PROGRESS TOWARDS D/C GOALS. PATIENT IS INCONTINENT OF URINE AT TIMES. PATIENT IS UP WITH ASSIST OF 1 STAFF WITH GAIT BELT AND WALKER T0 THE BATHROOM. PATIENT HAS LYMPHEDEMA WRAPS TO HER LOWER EXTREMITIES. WILL CONTINUE TO MONITER.
[2019-11-13 19:02] VITALS: BP 141/32
--- NOTE | 2019-11-14 02:55 | NUR ---
CHAIR TO BED AFTER 2100 WITH MIN ASSIST. LYMPHEDEMA WRAPS INTACT, NOCTURNAL DESAT STUDY OVERNIGHT ON O2, SAT CONSISTENTLY 98% OR HIGHER.
[2019-11-14 07:13] VITALS: BP 138/61
[2019-11-14 08:00] VITALS: BP 138/61
--- NOTE | 2019-11-14 16:00 | NUR ---
ASSUMED CARE AT 0700. REPORT DIDN'T SLEEP WELL D/T PAIN. ENCOURAGED PT TO ASK FOR PRN HYDROCODONE NEEDS. PT WAS INCONT BLADDER PER NIGHT RN. BUT HAS BEEN CONTINENT BLADDER DURING DAY. OFFER TOILETING FREQUENTLY. PATIENT IS ALERT AND ORIENTED X4. PATIENT IS [place]. ABLE TO VOICE HER NEEEDS. REASSESSEMENT PER CHART. HAD BM TODAY. REFUSED LAXATIVE. REFUSED LAXATIVES. HAD NOC OX STUDY LAST NIGHT. VSS ON RA THIS AM. C/O BACK PAIN, VOLATEREN GEL APPLIED. C/O LEFT KNEE BEFORE THERAPY. PRN HYDROCODONE GIVEN. DENIES PAIN NOW. OT GAVE PT SHOWER THIS AM. LYMPHEDEMA DRESSINGED CHANGED TODAY. EDEMA 2+ BLE ENCOURAGED PT TO ELEVATE WHEN IN RECLINER. PT UP WITH WALKER TO BATHROOM. PARTICIPATED WITH THERAPY THIS AM. OFFERED SUPPORTIVE CARE. ENCOURAGED PT TO VOICE HER NEEDS. BS MONITOR. MEDS GIVEN ORDERED. TOOK MEDS WITH THIN LIQUID WITHOUT DIFFICULTY. CONTINUES TO PROGRESS TOWARDS D/C GOALS. FALL PRECAUTION IN PLACE. RESTING IN RECLINER WATCHING TX. CALL LIGHT WITHIN REACH. WILL CONTINUE TO MONITOR.
[2019-11-14 19:55] VITALS: BP 157/65
--- NOTE | 2019-11-15 04:44 | NUR ---
INCONTINENT WHILE SITTNG IN CHAIR, UP TO TOILET WITH STANDBY ASSIST PRIOR TO GETTING READY FOR BED. SSI FOR BLOOD SUGAR OF 205, DECLINES BEDTIME SNACK. HAD BM, DECLINED LAXATIVES. LOOKING FORWARD TO GOING HOME SOON
[2019-11-15 06:19] LABS: ABSOLUTE NEUTROPHILS 8.8 thou/uL (1.4-8.2); BASOPHILS 0.4 % (0.0-2.0); EOSINOPHILS 1.3 % (0.0-3.0); HEMATOCRIT 30.9 % (37.0-47.0); HEMOGLOBIN 9.9 gm/dL (12.0-15.0); LYMPHOCYTES 20.6 % (24.0-44.0); MCH 27.4 pg (26.0-34.0); MCV 85.8 fL (80.0-100.0); PLATELET COUNT 203 thou/uL (150-400); POLYS 71.7 % (36.0-66.0); RDW 18.1 % (10.5-14.5); WBC 12.3 thou/uL (4.0-11.0)
[2019-11-15 06:29] LABS: CALCIUM 9.1 mg/dL (8.5-10.1); CREATININE 0.8 mg/dL (0.6-1.0); MAGNESIUM 2.1 mg/dL (1.8-2.4); POTASSIUM 3.9 mmol/L (3.5-5.1)
[2019-11-15 07:30] VITALS: BP 134/36
--- NOTE | 2019-11-15 10:37 | NUR ---
vendor form and hh list choices given to bedside nurse to give to pt and place on chart.
[2019-11-15 14:50] VITALS: BP 137/72
[2019-11-15 19:19] VITALS: BP 146/59
--- NOTE | 2019-11-15 19:30 | NUR ---
ASSUMED CARE AT 0700. PATIENT IS ALERT AND ORIENTED X4. PATIENT IS [place]. REPORTS SLEPT BETTER LAST NIGHT. REASSESSMENT PER CHART. LUNGS ARE CLEAR. ABD IS SOFT WITH BSX4. REFUSED LAXATIVES. HAD BM TODAY. ASSISTED TO BATHROOM. CONT BLADDER 4X. WET 2X. OFFERED SUPPORTIVE CARE. ENCOURAGED PT TO VOICE HER NEEDS. BS MONITOR, INSULIN AND MEDS GIVEN ORDERED. FALL AND SAFETY PROTOCOLS IN PLACE. PT C/O BACK AND L KNEE PAIN, GAVE PRN HYDROCODONE THIS AM. APPLIED VOLTARENE GEL. REFUSES VOLTARE GEL SOMETIMES. UP AND PARTICIPATED WITH THERAPY.CONTINUES TO PROGRESS TOWARDS D/C GOALS. PATIENT IS INCONTINENT OF URINE AT TIMES. PATIENT IS UP WITH ASSIST OF 1 STAFF WITH GAIT BELT AND WALKER T0 THE BATHROOM. VSS ON RA DURING DAY. USES PRN OXYGEN AT NIGHT. GAVE REPORT TO NIGHT NURSE TO CONTINUE TO MONITOR. PT WILL BE DISCHARGE HOME WITH HH TOMORROW. ENCOURAGED PT DO MORE THING FOR HERSELF RATHER LET HER SON DO IT FOR HER. PT AGREES THAT HER SON TRIED TO DO MORE THAN HE HAS TO.
--- NOTE | 2019-11-16 01:55 | NUR ---
PT ALERT AND ORIENTED X 4. UP IN RECLINER ALL EVENING. ASSISTED TO BED AT HS WITH 1 ASSIST. BLOOD SUGAR 166 AT HS. INSULIN GIVEN ORDERED. PT DENIES PAIN OR DISCOMFORT. BED ALARM ON FOR SAFETY. PT APPEARS TO BE SLEEPING ON HOURLY ROUNDS.
[2019-11-16 07:15] VITALS: BP 147/62
[2019-11-16] MEDS ORDERED: VITAMIN D325 MCG PO (08:42)
[2019-11-16] MEDS ORDERED: BUSPIRONE HCL5 MG PO ×2 (08:42→09:46)
[2019-11-16] MEDS ORDERED: LIPITOR 20 MG T20 M1 PO (08:42)
[2019-11-16] MEDS ORDERED: LISINOPRIL10 MG PO (08:42)
[2019-11-16] MEDS ORDERED: FUROSEMIDE 40 M40 MG PO ×2 (08:42→09:46)
[2019-11-16] MEDS ORDERED: MIRALAX119 GM PO ×2 (08:42→09:46)
[2019-11-16] MEDS ORDERED: METOPROLOL SUCC50 MG PO (08:42)
[2019-11-16] MEDS ORDERED: NYAMYC15 GM TOP (08:42)
[2019-11-16] MEDS ORDERED: SENNA-TIME S T1 EACH PO ×2 (08:42→09:46)
[2019-11-16] MEDS ORDERED: GABAPENTIN 100100 MG PO ×2 (08:42→09:46)
[2019-11-16] MEDS ORDERED: TRAZODONE HCL100 MG PO (08:42)
[2019-11-16] MEDS ORDERED: NORCO 5-325 TA1 EAC1 PO (09:43)
[2019-11-16] MEDS ORDERED: GLIPIZIDE ER5 MG PO (09:46)
[2019-11-16] MEDS ORDERED: IPRAT-ALBUT 0.5-3 ML INH (09:46)
[2019-11-16] MEDS ORDERED: FLONASE 0.05%50 MCG NASAL (09:46)
[2019-11-16] MEDS ORDERED: DICLOFENAC SOD100 G1 TOP (09:46)
[2019-11-16] MEDS ORDERED: PREDNISONE 5 MG5 M1 PO (09:55)
[2019-11-16 10:27] VITALS: BP 137/72
--- NOTE | 2019-11-16 10:42 | NUR ---
Pt dcing today with HH. Dtr in law to pickup at the front door at 1300. Message left for dtr in law to confirm the time and to confirm f/u appt with neuro. Appt made for 12/05/[address]Kumar leslie at [facility]. It has been noted in the pt's dc instructions. Massiel Ford has rec'd her hh orders and will f/u in 1-2 days.
[2019-11-16 10:45] VITALS: BP 137/72
[2019-11-16 11:04] VITALS: BP 137/72
--- NOTE | 2019-11-16 19:22 | NUR ---
ASSUMED CARE OF PT AT 0700. PT IS A&OX4 AND VITAL SIGNS ARE STABLE. PT DENIES PAIN AND PARTICIPATED IN SCHEDULED THERAPIES. ORDERS FOR D/C TODAY. SCRIPTS FAXED TO PHARMACY AND [facility] SCRIPT SENT WITH PT IN [place]. DISCHARGE INSTRUCTIONS INCLUDING F/U APPOINTMENTS, MEDICAITON LIST, AND DISCHARGE INSTRUCTIONS WITH PT. EDUCATION HANDOUTS REVIEWED AND PROVIDED FOR PATIENT. PT BELONGINGS REMOVED FROM ROOM AT TIME OF DISCHARGE. PT LEFT UNIT AT APPROXIMATELY 1330 WITH NURSING STAFF TO MAIN ENTERENCE.
== END 2019-11-16 13:35 | disposition home health service (06) | DRG 92 ==
PROVIDERS: Nurse Practitioner; Nurse Practitioner Family; ADMIT Physical Medicine & Rehabilitation
DX: G92 Toxic encephalopathy (principal); E44.0 Moderate protein-calorie malnutrition; N39.0 Urinary tract infection, site not specified; Z68.42 Body mass index [BMI] 45.0-49.9, adult; R53.81 Other malaise; R13.10 Dysphagia, unspecified; G89.29 Other chronic pain; M54.9 Dorsalgia, unspecified; E11.9 Type 2 diabetes mellitus without complications; I10 Essential (primary) hypertension; F03.90 Unspecified dementia, unspecified severity, without behavioral disturbance, psychotic disturbance, mood disturbance, and anxiety; E78.5 Hyperlipidemia, unspecified; F32.9 Major depressive disorder, single episode, unspecified; F41.9 Anxiety disorder, unspecified; R41.0 Disorientation, unspecified; F39 Unspecified mood [affective] disorder; R26.9 Unspecified abnormalities of gait and mobility; E55.9 Vitamin D deficiency, unspecified; G47.00 Insomnia, unspecified; I77.6 Arteritis, unspecified; E66.09 Other obesity due to excess calories; B96.89 Other specified bacterial agents as the cause of diseases classified elsewhere; B37.9 Candidiasis, unspecified; F01.50 Vascular dementia, unspecified severity, without behavioral disturbance, psychotic disturbance, mood disturbance, and anxiety; T38.0X5A Adverse effect of glucocorticoids and synthetic analogues, initial encounter; Z79.82 Long term (current) use of aspirin; Z79.899 Other long term (current) drug therapy; Y92.89 Other specified places as the place of occurrence of the external cause
CPT/HCPCS: 10112

== ENCOUNTER 2020-02-04 15:04 | Emergency (ER) | payer OTHER, MEDICARE ==
[~2020-02-04] VITALS: Ht 160 cm; Wt 95.3 kg
[~2020-02-04 15:04] MED LIST changes: +FLONASE 0.05%50 MCG NASAL; +GABAPENTIN 100100 MG PO; +LISINOPRIL10 MG PO; +METOPROLOL SUCC50 MG PO; +NORCO 5-325 TA1 EAC1 PO; +NYAMYC15 GM TOP; +PREDNISONE 5 MG5 M1 PO; +TRAZODONE HCL100 MG PO
[2020-02-04] MEDS ORDERED: XANAX 0.5 MG0.5 M1 PO (15:18)
[2020-02-04] MEDS ORDERED: BUSPIRONE HCL5 MG PO (15:19)
[2020-02-04 17:38] LABS: HEMATOCRIT 38.8 % (37.0-47.0); HEMOGLOBIN 12.2 gm/dL (12.0-15.0); MCH 26.4 pg (26.0-34.0); MCHC 31.3 g/dL (28.0-37.0); MCV 84.1 fL (80.0-100.0); PLATELET COUNT 186 thou/uL (150-400); RBC 4.61 mil/uL (4.20-5.00); RDW 16.6 % (10.5-14.5); WBC 8.4 thou/uL (4.0-11.0)
[2020-02-04 17:49] LABS: ANION GAP 6 mmol/L (7-16); BUN 9 mg/dL (7-18); CALCIUM 9.3 mg/dL (8.5-10.1); CHLORIDE 104 mmol/L (98-107); CO2 33 mmol/L (21-32); CREATININE 0.7 mg/dL (0.6-1.0); GLUCOSE 119 mg/dL (74-106); POTASSIUM 3.2 mmol/L (3.5-5.1); SODIUM 143 mmol/L (136-145)
[2020-02-04 17:59] LABS: ALBUMIN 3.1 g/dL (3.4-5.0); MAGNESIUM 1.7 mg/dL (1.8-2.4); SGOT 18 U/L (15-37); SGPT 16 U/L (30-65); TOTAL BILIRUBIN 0.4 mg/dL (0.2-1.0); TOTAL PROTEIN 6.1 g/dL (6.4-8.2); TROPONIN-I <0.06 ng/mL (<0.06)
[2020-02-04 18:04] LABS: ATYPICAL LYMPHS 1 %
[2020-02-04] MEDS ORDERED: XANAX 0.5 MG0.5 MG PO (18:04)
[2020-02-04 18:05] LABS: ABSOLUTE NEUTROPHILS 5.8 thou/uL (1.4-8.2); ANISOCYTOSIS 1+
[2020-02-05 01:44] VITALS: BP 107/49
--- NOTE | 2020-02-06 08:29 | EKG ---
[facility] [place] [address] ELECTROCARDIOGRAM REPORT Name: GERRI STANFORD [facility] [id number] Admission: 02/04/20 Attend Phys: Discharge: 02/05/20 Date of : 44 Report #: [id number] THIS REPORT FOR: cc: Luis Alberto Lancaster MD, Bernard O. MD Lundgren,Elpidio Lee MD 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 02/06/20 0829 1630 163 Elpidio Amin MD, [facility] /EPI
== END 2020-02-05 02:33 | disposition home or self-care (01) ==
LOC: ER 15:04
PROVIDERS: Emergency Medicine
DX: G89.29 Other chronic pain (principal); M54.5 Low back pain; I11.0 Hypertensive heart disease with heart failure; I50.9 Heart failure, unspecified; J44.9 Chronic obstructive pulmonary disease, unspecified; E11.9 Type 2 diabetes mellitus without complications; E78.5 Hyperlipidemia, unspecified; Z20.828 Contact with and (suspected) exposure to other viral communicable diseases; Z90.89 Acquired absence of other organs; Z79.899 Other long term (current) drug therapy

== ENCOUNTER 2020-02-14 20:55 | Emergency (ER) | payer OTHER, MEDICARE ==
[~2020-02-14] VITALS: Ht 160 cm; Wt 113.4 kg
[~2020-02-14 20:55] MED LIST changes: +XANAX 0.5 MG0.5 M1 PO; +XANAX 0.5 MG0.5 MG PO
[2020-02-14 22:36] LABS: ABSOLUTE NEUTROPHILS 4.1 thou/uL (1.4-8.2); BASOPHILS 1.7 % (0.0-2.0); EOSINOPHILS 4.4 % (0.0-3.0); HEMATOCRIT 36.1 % (37.0-47.0); HEMOGLOBIN 11.4 gm/dL (12.0-15.0); LYMPHOCYTES 27.4 % (24.0-44.0); MCH 26.1 pg (26.0-34.0); MCHC 31.7 g/dL (28.0-37.0); MCV 82.4 fL (80.0-100.0); MONOCYTES 8.8 % (1.0-8.0); PLATELET COUNT 210 thou/uL (150-400); POLYS 57.7 % (36.0-66.0); RBC 4.38 mil/uL (4.20-5.00); RDW 16.2 % (10.5-14.5); WBC 7.1 thou/uL (4.0-11.0)
[2020-02-14 22:48] LABS: ANION GAP 4 mmol/L (7-16); BUN 9 mg/dL (7-18); CALCIUM 9.4 mg/dL (8.5-10.1); CHLORIDE 100 mmol/L (98-107); CO2 38 mmol/L (21-32); CREATININE 0.9 mg/dL (0.6-1.0); GLUCOSE 161 mg/dL (74-106); POTASSIUM 3.5 mmol/L (3.5-5.1); SODIUM 142 mmol/L (136-145)
[2020-02-14 22:58] LABS: SGOT 18 U/L (15-37); SGPT 18 U/L (30-65); TOTAL BILIRUBIN 0.5 mg/dL (0.2-1.0); TOTAL PROTEIN 6.5 g/dL (6.4-8.2); TROPONIN-I <0.06 ng/mL (<0.06)
[2020-02-14 22:59] LABS: URINE BILIRUBIN NEGATIVE (Negative); URINE BLOOD NEGATIVE (Negative); URINE CLARITY CLEAR; URINE COLOR YELLOW; URINE GLUCOSE-RANDOM* NEGATIVE (Negative); URINE KETONES NEGATIVE (Negative); URINE LEUKOCYTES-REFLEX NEGATIVE (Negative); URINE NITRITE-REFLEX NEGATIVE (Negative); URINE PROTEIN (DIPSTICK) NEGATIVE (Negative); URINE SPECIFIC GRAVITY >= 1.030 (1.005-1.035); URINE UROBILINOGEN 0.2 E.U./dl (0.2-1.0)
[2020-02-14] MEDS ORDERED: ASPERCREME1 EACH TOP (23:14)
[2020-02-14] MEDS ORDERED: MECLIZINE HCL25 M1 PO (23:14)
[2020-02-14 23:48] VITALS: BP 163/71
--- NOTE | 2020-02-16 08:14 | EKG ---
[facility] [place] [address] ELECTROCARDIOGRAM REPORT Name: ABDOULAYEGERRI [facility] [id number] Admission: 02/14/20 Attend Phys: Discharge: 02/14/20 Date of : 44 Report #: [id number] THIS REPORT FOR: cc: LIONEL - [place] family physician/PCP FAM - No family physician/PCP Derrick Izquierdo MD ~ THIS REPORT FOR: //name// 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: [facility] : 1940 Requested By: Perfecto Melara Order Number: [id number] MD: Derrick Izquierdo Measurements Intervals [place] Rate: 96 P: 258 MD: 166 QRS: -26 QRSD: 107 T: 62 QT: 380 QTc: 481 Interpretive Statements Ectopic atrial rhythm Borderline left axis deviation Compared to ECG 02/04/2020 16:30:14 Ectopic atrial rhythm now present Sinus rhythm no longer present Poor R-wave progression no longer present Electronically Signed On 02-16-2020 8:14:24 CDT by Derrick Izquierdo [email or web address] <ELECTRONICALLY SIGNED> By: Derrick Izquierdo MD 02/16/20813 44 44 Derrick Izquierdo MD /EPI
== END 2020-02-14 23:49 | disposition home or self-care (01) ==
LOC: ER 20:55
PROVIDERS: Emergency Medicine
DX: S80.11XA Contusion of right lower leg, initial encounter (principal); S40.022A Contusion of left upper arm, initial encounter; M54.9 Dorsalgia, unspecified; M54.2 Cervicalgia; R22.42 Localized swelling, mass and lump, left lower limb; R42 Dizziness and giddiness; E78.5 Hyperlipidemia, unspecified; I11.0 Hypertensive heart disease with heart failure; I50.9 Heart failure, unspecified; F41.9 Anxiety disorder, unspecified; F32.9 Major depressive disorder, single episode, unspecified; J44.9 Chronic obstructive pulmonary disease, unspecified; E11.51 Type 2 diabetes mellitus with diabetic peripheral angiopathy without gangrene; Z86.73 Personal history of transient ischemic attack (TIA), and cerebral infarction without residual deficits; Z98.890 Other specified postprocedural states; Z90.711 Acquired absence of uterus with remaining cervical stump; Z79.899 Other long term (current) drug therapy; W19.XXXA Unspecified fall, initial encounter; Y93.89 Activity, other specified; Y92.098 Other place in other non-institutional residence as the place of occurrence of the external cause; Y99.8 Other external cause status

== ENCOUNTER 2020-03-10 12:01 | Emergency (ER) | payer OTHER, MEDICARE ==
[~2020-03-10] VITALS: Ht 160 cm; Wt 113.4 kg
[~2020-03-10 12:01] MED LIST changes: +ASPERCREME1 EACH TOP; +MECLIZINE HCL25 M1 PO
[2020-03-10 15:52] LABS: ABSOLUTE NEUTROPHILS 6.4 thou/uL (1.4-8.2); BASOPHILS 0.7 % (0.0-2.0); EOSINOPHILS 4.2 % (0.0-3.0); HEMATOCRIT 35.6 % (37.0-47.0); HEMOGLOBIN 11.4 gm/dL (12.0-15.0); LYMPHOCYTES 13.8 % (24.0-44.0); MCH 26.2 pg (26.0-34.0); MCHC 31.9 g/dL (28.0-37.0); MONOCYTES 7.1 % (1.0-8.0); PLATELET COUNT 187 thou/uL (150-400); POLYS 74.2 % (36.0-66.0); RBC 4.34 mil/uL (4.20-5.00); RDW 16.4 % (10.5-14.5); WBC 8.6 thou/uL (4.0-11.0)
[2020-03-10 16:00] LABS: CREATININE 0.8 mg/dL (0.6-1.0)
[2020-03-10 16:01] LABS: POTASSIUM 5.6 mmol/L (3.5-5.1)
[2020-03-10 19:09] VITALS: BP 159/94
--- NOTE | 2020-03-12 08:09 | EKG ---
[facility] [place] [address] ELECTROCARDIOGRAM REPORT Name: ABDOULAYEGERRI [facility] [id number] Admission: 03/10/20 Attend Phys: Discharge: 03/10/20 Date of : 44 Report #: [id number] THIS REPORT FOR: cc: FAM - No family physician/PCP FAM - No family physician/PCP Derrick Izquierdo MD ~ THIS REPORT FOR: //name// 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: [facility] : 1940 Requested By: Mp Ro Order Number: [id number] MD: Derrick Izquierdo Measurements Intervals [place] Rate: 88 P: MD: QRS: -18 QRSD: 110 T: 67 QT: 364 QTc: 441 Interpretive Statements Sinus rhythm Probable left ventricular hypertrophy Compared to ECG 02/14/2020 21:45:10 Ectopic atrial rhythm no longer present Electronically Signed On 03-12-2020 8:09:01 CDT by Derrick Izquierdo [email or web address] <ELECTRONICALLY SIGNED> By: Derrick Izquierdo MD 03/12/20 0809 1735 1735 Derrick Izquierdo MD /ELEAZAR
== END 2020-03-10 19:14 | disposition home or self-care (01) ==
LOC: ER 12:01
PROVIDERS: Emergency Medicine
DX: S80.02XA Contusion of left knee, initial encounter (principal); S80.01XA Contusion of right knee, initial encounter; S70.01XA Contusion of right hip, initial encounter; S50.11XA Contusion of right forearm, initial encounter; S40.011A Contusion of right shoulder, initial encounter; I11.0 Hypertensive heart disease with heart failure; I50.9 Heart failure, unspecified; E11.9 Type 2 diabetes mellitus without complications; E78.5 Hyperlipidemia, unspecified; J44.9 Chronic obstructive pulmonary disease, unspecified; G89.29 Other chronic pain; M54.9 Dorsalgia, unspecified; Z90.710 Acquired absence of both cervix and uterus; Z79.899 Other long term (current) drug therapy; W18.2XXA Fall in (into) shower or empty bathtub, initial encounter; Y93.89 Activity, other specified; Y92.89 Other specified places as the place of occurrence of the external cause; Y99.8 Other external cause status

== ENCOUNTER 2020-03-18 11:57 | Emergency (ER) | payer OTHER, MEDICARE ==
[~2020-03-18] VITALS: Ht 160 cm; Wt 95.3 kg
[2020-03-18] MEDS ORDERED: AMITRIPTYLINE H25 M3 PO (12:08)
[2020-03-18] MEDS ORDERED: DULCOLAX STOOL100 M1 PO (12:09)
[2020-03-18] MEDS ORDERED: CELECOXIB200 MG PO (12:10)
[2020-03-18] MEDS ORDERED: PREGABALIN50 MG PO (12:11)
[2020-03-18] MEDS ORDERED: ZESTRIL5 MG PO (12:12)
[2020-03-18 13:42] LABS: HEMATOCRIT 37.3 % (37.0-47.0); HEMOGLOBIN 11.7 gm/dL (12.0-15.0); MCH 25.8 pg (26.0-34.0); MCHC 31.5 g/dL (28.0-37.0); MCV 81.9 fL (80.0-100.0); RBC 4.56 mil/uL (4.20-5.00); RDW 16.3 % (10.5-14.5); WBC 7.1 thou/uL (4.0-11.0)
[2020-03-18 13:48] LABS: CALCIUM 9.5 mg/dL (8.5-10.1); CREATININE 0.8 mg/dL (0.6-1.0); POTASSIUM 3.7 mmol/L (3.5-5.1)
[2020-03-18] MEDS ORDERED: XANAX 0.5 MG0.5 MG PO (16:18)
[2020-03-18] MEDS ORDERED: NORCO 5-325 TA1 EAC2 PO (16:18)
[2020-03-18 16:20] VITALS: BP 171/74
== END 2020-03-18 16:20 | disposition home or self-care (01) ==
LOC: ER 11:57
PROVIDERS: Physician Assistant
DX: S32.018A Other fracture of first lumbar vertebra, initial encounter for closed fracture (principal); S00.83XA Contusion of other part of head, initial encounter; S80.11XA Contusion of right lower leg, initial encounter; M25.551 Pain in right hip; R10.9 Unspecified abdominal pain; I11.0 Hypertensive heart disease with heart failure; I50.9 Heart failure, unspecified; E11.9 Type 2 diabetes mellitus without complications; E78.5 Hyperlipidemia, unspecified; J44.9 Chronic obstructive pulmonary disease, unspecified; G89.29 Other chronic pain; M54.5 Low back pain; Z90.710 Acquired absence of both cervix and uterus; Z79.899 Other long term (current) drug therapy; W10.9XXA Fall (on) (from) unspecified stairs and steps, initial encounter; Y93.89 Activity, other specified; Y92.89 Other specified places as the place of occurrence of the external cause; Y99.8 Other external cause status

== ENCOUNTER 2020-03-28 16:24 | Inpatient (IN) | payer OTHER, MEDICARE ==
[~2020-03-28] VITALS: Ht 160 cm; Wt 95.3 kg
[~2020-03-28 16:24] MED LIST changes: +AMITRIPTYLINE H25 M3 PO; +DULCOLAX STOOL100 M1 PO; +NORCO 5-325 TA1 EAC2 PO; +PREGABALIN50 MG PO; +ZESTRIL5 MG PO
[2020-03-28 16:40] VITALS: BP 195/99
[2020-03-28 18:09] LABS: URINE BILIRUBIN NEGATIVE (Negative); URINE BLOOD NEGATIVE (Negative); URINE CLARITY CLEAR; URINE COLOR YELLOW; URINE GLUCOSE-RANDOM* NEGATIVE (Negative); URINE KETONES NEGATIVE (Negative); URINE LEUKOCYTES-REFLEX TRACE (Negative); URINE NITRITE-REFLEX NEGATIVE (Negative); URINE PROTEIN (DIPSTICK) NEGATIVE (Negative); URINE UROBILINOGEN 0.2 E.U./dl (0.2-1.0)
[2020-03-28 19:02] LABS: HEMOGLOBIN 11.4 gm/dL (12.0-15.0); MCH 25.9 pg (26.0-34.0); MCHC 31.8 g/dL (28.0-37.0); MCV 81.4 fL (80.0-100.0); PLATELET COUNT 206 thou/uL (150-400); RBC 4.42 mil/uL (4.20-5.00); RDW 16.2 % (10.5-14.5); WBC 9.3 thou/uL (4.0-11.0)
[2020-03-28 19:13] LABS: CALCIUM 9.1 mg/dL (8.5-10.1); CREATININE 0.8 mg/dL (0.6-1.0)
[2020-03-28 19:19] LABS: ALBUMIN 3.3 g/dL (3.4-5.0); TOTAL BILIRUBIN 0.6 mg/dL (0.2-1.0); TOTAL PROTEIN 6.8 g/dL (6.4-8.2)
[2020-03-28 19:35] LABS: ABSOLUTE NEUTROPHILS 6.4 thou/uL (1.4-8.2)
[2020-03-28 19:36] LABS: ANISOCYTOSIS 1+
[2020-03-28 20:13] VITALS: BP 175/64
--- NOTE | 2020-03-28 20:42 | NUR ---
ATTEMPTED TO CALL REPORT TO 4S. NO ANSWER AT THIS TIME.
[2020-03-28 20:56] VITALS: BP 213/112
[2020-03-28 20:57] VITALS: BP 213/112
[2020-03-28 21:45] VITALS: BP 194/91
[2020-03-28] MEDS ORDERED: TOPROL XL50 MG PO (23:30)
[2020-03-29] VITALS (16 sets, daily range): BP systolic 122–193; BP diastolic 47–94
--- NOTE | 2020-03-29 04:05 | NUR ---
PT WAS ADMITTED TO THE UNIT FROM THE ER IN A STABLE CONDITION.ADMISSION HX EDUCATION AND ASSESSMENT COMPLETED.PT'S BP WAS ELEVATED ON ADMIT PRN MED ADMINISTERED,EFFECTIVE.BG MONITORED WAS 72.PENA VIRUS TEST COMPLETED.PT NPO AT THIS TIME FOR A POSSIBLE PROCEDURE IN THE AM.PT REF SCD AT THIS TIME.PT'S PAIN MANAGED WITH IV AND PO MED.PT SLEEPING ON HER BED AT THIS TIME.FALL PRECAUTIONS IN PLACE,CALL LIGHT WITHIN REACH.
[2020-03-29 05:47] LABS: HEMATOCRIT 34.8 % (37.0-47.0); MCH 25.8 pg (26.0-34.0); MCHC 31.5 g/dL (28.0-37.0); RBC 4.25 mil/uL (4.20-5.00); RDW 16.3 % (10.5-14.5); WBC 8.3 thou/uL (4.0-11.0)
[2020-03-29 05:55] LABS: POTASSIUM 4.4 mmol/L (3.5-5.1)
--- NOTE | 2020-03-29 18:13 | NUR ---
Case opened to follow for dc planning. Pt is well known to from frequent admissions over the past couple of years. The pt most recently was here in October and went to [facility] acute [facility]hab prior to dcing back home with her son Adelso and dtr in law Rosetta, with whom she lives. She had [facility] [place] and they saw her until mid December 2019. Referral sent to intake should she need to have hh again at dc. The pt has also gone to [facility] and [facility] in the past for rehab. Pt admitted with new L1 comp fx and possible khypoplasty tomorrow. PT/OT evals pending. Pt will likely need HH referral and or rehab or snf pending her progress. Will follow.
--- NOTE | 2020-03-29 18:48 | NUR ---
ASSUMED PT AT 0715. PT HAD SURGERY TODAY, AND IS RESTING POSTSURGERY. PT PAIN IS CONTROLLED, AND PT IS ACHS. PT HAS A GOOD APPETITE AND IS CONTINENT TO BOWEL AND BLADDER. BP CAN BECOME ELEVATED AND PT IS UP WITH ASSIST. FALL PRECAUTIONS ARE IN PLACE, WILL CONTINUE TO MONITOR.
--- NOTE | 2020-03-29 20:43 | NUR ---
I AGREE WITH NURSING ASSESSMENT, BUT NURSING NOTE NEEDS CLARIFICATION IN REGARD TO ELEVATED B/P, PONTRILL/STONE CUTTER STATES YANET COULD NOT REMEMBER IF SHE NOTIFIED DR SILVA OF ELEVATED B/P, THIS RN EDUCATED PONTRILLA/STONE CUTTER TO ALWAYS NOTIFY THE MD IF B/P ELEVATED AND PUT THAT SHE NOTIFIED THE MD IN HER NURSING NOTE.
[2020-03-30] VITALS (7 sets, daily range): BP systolic 146–175; BP diastolic 78–94
--- NOTE | 2020-03-30 02:31 | NUR ---
PT CARE ASSUNED WITH PT IN BED SLEEPING.PT IS A/O X4.PT IS A/O X4.PT IV ACCESS ON RT AC.PT IS ACCUCHECK ACHS.PT NOT UP DURING SHIFT AND WILL BE EVALUATED BY PT/OT.PT USES BEDPAN FOR ELIMINATION.PT ON O2 2L.PT HAS SUBHASH LE EDEMA.PT APPEARED TO BE IN NO ACUTE PAIN OR DISTRESS.WILL CONTINUE TO MONITOR PER POC
--- NOTE | 2020-03-30 11:35 | NUR ---
Pt had khypoplasty yesterday and doing well with therapy this am. Dc to home this afternoon. Dtr in law to pickup once RN calls her. HH orders faxed to [facility] and confirmed with intake. Pt has needed dme in place at home.
--- NOTE | 2020-03-30 16:04 | NUR ---
DISCHARGE PAPERS REVIEWED WITH PATIENT. SIGNED AND COPY IN CHART. IV ACSESS DCD. PT DRESSED AND ALL BELONGINGS PACKED AND SENT WITH PATIENT. PT W/O PAIN OR RESP DISTRESS. HAS FORGETFULNESS AT TIMES. DIL WAS TO CUSTOM SKI MAKER EARLIER BUT TRAFFIC WAS HEAVY AND THEN SHE HAD A FLAT TIRE. PT DISCHARGED AT THIS TIME.
== END 2020-03-30 16:16 | disposition home health service (06) | DRG 515 ==
LOC: ER 16:24 → EROBS 19:26 → 4S 19:26
PROVIDERS: Nurse Practitioner Family; Physician Assistant; ADMIT Hospitalist; ATTEND Hospitalist
PROC: 0QS03ZZ Reposition Lumbar Vertebra, Percutaneous Approach (ICD-10-PCS; principal; 2020-03-29)
PROC: 0QU03JZ Supplement Lumbar Vertebra with Synthetic Substitute, Percutaneous Approach (ICD-10-PCS; principal; 2020-03-29)
DX: S32.019A Unspecified fracture of first lumbar vertebra, initial encounter for closed fracture (principal); J96.01 Acute respiratory failure with hypoxia; E44.1 Mild protein-calorie malnutrition; M54.89 Other dorsalgia; Z20.828 Contact with and (suspected) exposure to other viral communicable diseases; E78.5 Hyperlipidemia, unspecified; I50.9 Heart failure, unspecified; F32.9 Major depressive disorder, single episode, unspecified; F41.9 Anxiety disorder, unspecified; G89.29 Other chronic pain; M54.9 Dorsalgia, unspecified; J44.9 Chronic obstructive pulmonary disease, unspecified; I27.20 Pulmonary hypertension, unspecified; E66.9 Obesity, unspecified; I11.0 Hypertensive heart disease with heart failure; E11.51 Type 2 diabetes mellitus with diabetic peripheral angiopathy without gangrene; M79.7 Fibromyalgia; Z86.73 Personal history of transient ischemic attack (TIA), and cerebral infarction without residual deficits; Z68.37 Body mass index [BMI] 37.0-37.9, adult; Z90.710 Acquired absence of both cervix and uterus; W18.39XA Other fall on same level, initial encounter; Y93.89 Activity, other specified; Y92.89 Other specified places as the place of occurrence of the external cause; Y99.8 Other external cause status; Z79.899 Other long term (current) drug therapy
CPT/HCPCS: 10100; 10195

== ENCOUNTER 2020-04-03 14:37 | Emergency (ER) | payer OTHER, MEDICARE ==
[~2020-04-03] VITALS: Ht 160 cm; Wt 95.3 kg
[2020-04-03 16:19] LABS: AMP/METHAMP Negative (Negative); BARBITURATES Negative (Negative); BENZODIAZEPINES POSITIVE (Negative); COCAINE Negative (Negative); METHADONE Negative (Negative); OPIATES Negative (Negative); PCP Negative (Negative)
[2020-04-03 17:26] LABS: ANION GAP 8 mmol/L (7-16); BUN 21 mg/dL (7-18); CALCIUM 8.8 mg/dL (8.5-10.1); CHLORIDE 105 mmol/L (98-107); CO2 28 mmol/L (21-32); CREATININE 0.9 mg/dL (0.6-1.0); GLUCOSE 148 mg/dL (74-106); POTASSIUM 3.8 mmol/L (3.5-5.1); SODIUM 141 mmol/L (136-145)
[2020-04-03 17:37] LABS: TROPONIN-I <0.06 ng/mL (<0.06)
[2020-04-03 17:44] LABS: HEMATOCRIT 35.7 % (37.0-47.0); HEMOGLOBIN 11.4 gm/dL (12.0-15.0); MCH 26.1 pg (26.0-34.0); MCHC 31.9 g/dL (28.0-37.0); MCV 81.7 fL (80.0-100.0); PLATELET COUNT 212 thou/uL (150-400); RBC 4.37 mil/uL (4.20-5.00); RDW 16.3 % (10.5-14.5); WBC 9.8 thou/uL (4.0-11.0)
[2020-04-03 18:13] LABS: ABSOLUTE NEUTROPHILS 7.4 thou/uL (1.4-8.2); ANISOCYTOSIS 1+; MICROCYTES FEW
[2020-04-03 18:14] LABS: MACROCYTES FEW; POLYCHROMASIA OCCASIONAL
[2020-04-03 18:30] LABS: URINE BILIRUBIN NEGATIVE (Negative); URINE BLOOD NEGATIVE (Negative); URINE CLARITY CLEAR; URINE COLOR YELLOW; URINE GLUCOSE-RANDOM* NEGATIVE (Negative); URINE KETONES NEGATIVE (Negative); URINE LEUKOCYTES-REFLEX TRACE (Negative); URINE NITRITE-REFLEX NEGATIVE (Negative); URINE PROTEIN (DIPSTICK) NEGATIVE (Negative); URINE SPECIFIC GRAVITY 1.015 (1.005-1.035); URINE UROBILINOGEN 0.2 E.U./dl (0.2-1.0)
[2020-04-03 18:54] VITALS: BP 186/77
--- NOTE | 2020-04-04 07:42 | EKG ---
[facility] [place] [address] ELECTROCARDIOGRAM REPORT Name: GERRI STANFORD Room #: DEP [facility]#: [id number] Admission: 04/03/20 Attend Phys: Discharge: 04/03/20 Date of : 44 Report #: [id number] THIS REPORT FOR: cc: Luis Alberto Lancaster MD, Bernard O. MD Lundgren,Elpidio Lee MD [facility] THIS REPORT FOR: //name// [facility] ED Test Date: 2020-04-03 Test Time: 16:56:47 Pat Name: GERRI STANFORD Department: Room: Gender: F Housekeeping Aid: ELOY : 1940 Requested By: Vinnie Devlin Order Number: [id number] MD: Elpidio Amin Measurements Intervals [place] Rate: 89 P: 45 ND: 243 QRS: -20 QRSD: 108 T: 66 QT: 382 QTc: 465 Interpretive Statements Sinus rhythm Prolonged ND interval Borderline left axis deviation Compared to ECG 03/10/2020 17:35:52 No significant change was found Electronically Signed On 04-04-2020 7:41:54 CDT by Elpidio Amin [email or web address] <ELECTRONICALLY SIGNED> By: Elpidio Amin MD, FACC 04/04/20 0741 1656 1656 Elpidio Amin MD, [facility] /EPI
== END 2020-04-03 18:54 | disposition home or self-care (01) ==
LOC: ER 14:37
PROVIDERS: Nurse Practitioner
DX: M25.562 Pain in left knee (principal); R53.1 Weakness; I11.0 Hypertensive heart disease with heart failure; I50.9 Heart failure, unspecified; E11.9 Type 2 diabetes mellitus without complications; E78.5 Hyperlipidemia, unspecified; J44.9 Chronic obstructive pulmonary disease, unspecified; G89.29 Other chronic pain; M54.9 Dorsalgia, unspecified; Z90.710 Acquired absence of both cervix and uterus; Z79.899 Other long term (current) drug therapy

== ENCOUNTER 2020-04-13 14:50 | Emergency (ER) | payer OTHER, MEDICARE ==
[~2020-04-13] VITALS: Ht 152.4 cm; Wt 114.3 kg
[2020-04-13 16:14] LABS: ABSOLUTE NEUTROPHILS 5.1 thou/uL (1.4-8.2); BASOPHILS 0.9 % (0.0-2.0); EOSINOPHILS 3.1 % (0.0-3.0); HEMATOCRIT 34.3 % (37.0-47.0); HEMOGLOBIN 11.1 gm/dL (12.0-15.0); LYMPHOCYTES 17.6 % (24.0-44.0); MCH 26.1 pg (26.0-34.0); MCHC 32.2 g/dL (28.0-37.0); MCV 81.1 fL (80.0-100.0); MONOCYTES 5.6 % (1.0-8.0); PLATELET COUNT 182 thou/uL (150-400); POLYS 72.8 % (36.0-66.0); RBC 4.23 mil/uL (4.20-5.00); RDW 16.7 % (10.5-14.5); WBC 7.1 thou/uL (4.0-11.0)
[2020-04-13 16:35] LABS: CALCIUM 9.5 mg/dL (8.5-10.1); CREATININE 0.7 mg/dL (0.6-1.0); POTASSIUM 3.6 mmol/L (3.5-5.1)
[2020-04-13 20:37] LABS: URINE BILIRUBIN NEGATIVE (Negative); URINE BLOOD NEGATIVE (Negative); URINE CLARITY CLEAR; URINE COLOR YELLOW; URINE GLUCOSE-RANDOM* NEGATIVE (Negative); URINE KETONES NEGATIVE (Negative); URINE LEUKOCYTES-REFLEX TRACE (Negative); URINE NITRITE-REFLEX NEGATIVE (Negative); URINE PROTEIN (DIPSTICK) NEGATIVE (Negative); URINE UROBILINOGEN 0.2 E.U./dl (0.2-1.0)
[2020-04-13 21:24] VITALS: BP 181/100
== END 2020-04-13 22:12 | disposition home or self-care (01) ==
LOC: ER 14:50
PROVIDERS: Nurse Practitioner
DX: S00.83XA Contusion of other part of head, initial encounter (principal); G89.29 Other chronic pain; M54.5 Low back pain; R42 Dizziness and giddiness; R10.84 Generalized abdominal pain; M79.7 Fibromyalgia; M25.552 Pain in left hip; M25.551 Pain in right hip; E11.9 Type 2 diabetes mellitus without complications; J44.9 Chronic obstructive pulmonary disease, unspecified; I11.0 Hypertensive heart disease with heart failure; I50.9 Heart failure, unspecified; E78.5 Hyperlipidemia, unspecified; F41.9 Anxiety disorder, unspecified; F32.9 Major depressive disorder, single episode, unspecified; E11.51 Type 2 diabetes mellitus with diabetic peripheral angiopathy without gangrene; Z90.711 Acquired absence of uterus with remaining cervical stump; Z79.899 Other long term (current) drug therapy; Z98.890 Other specified postprocedural states; W19.XXXA Unspecified fall, initial encounter; Y93.89 Activity, other specified; Y92.89 Other specified places as the place of occurrence of the external cause; Y99.8 Other external cause status

== ENCOUNTER 2020-04-22 07:13 | Inpatient (IN) | payer OTHER, MEDICARE ==
[~2020-04-22] VITALS: Ht 160 cm; Wt 99.3 kg
--- NOTE | ~2020-04-22 | HC ---
[facility] [place] [address] CONSULTATION Name: GERRI STANFORD Room #: 456-P ADM IN M.R.#: [id number] Admission: 04/22/20 Attend Phys: Steven Spear MD Discharge: Date of : 44 Report #: [id number] THIS REPORT FOR: cc: Luis Alberto Lancaster MD, Bernard O. MD Smithson, David G. MD ~ DATE OF SERVICE: 04/25/2020 HISTORY OF PRESENT ILLNESS: The patient is a 79-year-old white female previously known to me, who was just discharged on 03/30/2020 from [facility] post-kyphoplasty for L1 vertebral compression fracture. She has been noted to have 9 visits to the Emergency Department this year. She readmitted this time on 04/22/2020 with increased shortness of breath and was noted to have an O2 sat of 80% per EMS. She was diagnosed with acute hypoxic respiratory failure with acute exacerbation of chronic obstructive pulmonary disease and hypertensive urgency. Pulmonary Medicine is involved. She is on IV Solu-Medrol and the pulmonary program. COVID was negative. She is currently on 4 liters. She has had a functional decline from her premorbid status and we are seeing her in rehabilitation medicine consultation. PAST MEDICAL HISTORY: Includes diabetes mellitus type 2, peripheral arterial disease, hyperlipidemia, fibromyalgia, morbid obesity. SOCIAL HISTORY: She had a prior [address] [place] [address] inpatient rehabilitation stay back in 10/2019 for a diagnosis of toxic metabolic encephalopathy. She had Psychiatry involved during that stay, had an elevated sed rate with a question of vasculitis. She was able to be discharged back to the home setting ambulating 100 feet with front-wheeled walker, standby assistance. She currently lives with her son and [id number] whom she notes that they live with her. She was on 2 liters just at night. She did utilize a walker. Of note is she has had a [facility] stay as well. REVIEW OF SYSTEMS: Shortness of breath with limited activity. No chest pain or abdominal discomfort. PHYSICAL EXAMINATION: GENERAL: This is a 79-year-old obese female in no obvious distress. She is currently on 4 liters nasal cannula. VITAL SIGNS: Temperature 36.6, pulse 78, respirations 20, blood pressure 173/87. She is alert, will follow basic 1 step commands. HEENT: Facies are symmetric. EXTREMITIES: Functional range of motion of both upper extremities. Strength is grade 4-/5 to 3+/5. Lower extremities, no focal calf swelling, functional range of motion with strength grade 3+ to 4-/5. Tone appeared [place]. [place] [address] CONSULTATION Name: GERRI STANFORD Room #: 456-P [facility] IN M.R.#: [id number] Admission: 04/22/20 Attend Phys: Steven Spear MD Discharge: Date of : 44 Report #: [id number] standby assistance with sit to stand and ambulated 55 feet min assist with a front-wheeled walker. She needs assistance with gait. She is on 4 liters. Bed mobility is minimum. Bathing with moderate assistance. ASSESSMENT: This is a 79-year-old white female with the following problem list: 1. Pulmonary debilitation. 2. Medical complexity with generalized debilitation. 3. Acute hypoxic respiratory failure. 4. Acute exacerbation of chronic obstructive pulmonary disease. 5. Hypertensive urgency. 6. Recent L1 vertebral compression fracture, status post kyphoplasty. 7. Diabetes mellitus type 2. 8. Peripheral arterial disease. 9. Hyperlipidemia. 10. Morbid obesity. 11. Fibromyalgia. PLAN: We will need to check on acute hospital days. The patient is desiring to return directly home, but I discussed with her the multiple Emergency Room visits and her decreased functional status and her increased medical needs. She may warrant a short acute in-hospital inpatient rehabilitation stay. Again, we are checking on acute hospital day status and we will be glad to follow along with you regarding her rehab therapy needs. By: [id number] Kendrick Yang MD /TRISTAN
[2020-04-22 07:14] VITALS: BP 210/117
[2020-04-22 08:03] LABS: ABSOLUTE NEUTROPHILS 6.6 thou/uL (1.4-8.2); BASOPHILS 0.8 % (0.0-2.0); EOSINOPHILS 3.2 % (0.0-3.0); HEMATOCRIT 35.6 % (37.0-47.0); HEMOGLOBIN 11.1 gm/dL (12.0-15.0); LYMPHOCYTES 22.6 % (24.0-44.0); MCH 25.7 pg (26.0-34.0); MCHC 31.1 g/dL (28.0-37.0); MCV 82.5 fL (80.0-100.0); MONOCYTES 4.7 % (1.0-8.0); PLATELET COUNT 190 thou/uL (150-400); POLYS 68.7 % (36.0-66.0); RBC 4.32 mil/uL (4.20-5.00); RDW 17.2 % (10.5-14.5); WBC 9.6 thou/uL (4.0-11.0)
[2020-04-22 08:08] LABS: ANION GAP 8 mmol/L (7-16); BUN 11 mg/dL (7-18); CHLORIDE 105 mmol/L (98-107); CO2 35 mmol/L (21-32); GLUCOSE 168 mg/dL (74-106); POTASSIUM 3.6 mmol/L (3.5-5.1); SODIUM 148 mmol/L (136-145)
[2020-04-22 08:17] LABS: TROPONIN-I <0.06 ng/mL (<0.06)
[2020-04-22 08:36] LABS: BE(vivo) 5.4 mmol/L (-2 to +3); HCO3 33.2 mmol/L (22.0-26.0); PO2 71.6 mmHg (80.0-100.0); sO2 92.7 % (92.0-98.0)
[2020-04-22 08:37] LABS: PCO2 65.8 mmHg (35.0-45.0); pH 7.321 (7.360-7.450)
[2020-04-22 10:19] LABS: ANISOCYTOSIS 1+
--- NOTE | 2020-04-22 11:19 | EKG ---
[facility] [place] [address] ELECTROCARDIOGRAM REPORT Name: ABDOULAYEGERRI Room #: [facility]#: [id number] Admission: 04/22/20 Attend Phys: Discharge: Date of : 44 Report #: [id number] THIS REPORT FOR: cc: Luis Alberto Lancaster MD, Bernard O. MD Couchonnal, Luis F. 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
--- NOTE | 2020-04-22 12:13 | NUR ---
CONSULTED TO PLACE A PIV FOR THIS PATIENT IN THE ER. WELL KNOWN TO OUR TEAM A DIFFICULT IV STICK. THIS IS HER 3RD IV PLACEMENT IN THE SHORT TIME SHE HAS BEEN IN THE ER. DISSCUSSED MIDLINE PLACEMENT WITH HER AFTER CONFIRMING SHE WILL BE ADMITTED. SHE AGREED TO PLACEMENT. ATTEMPTED THE RIGHT CEPHALIC X3 AND UNABLE TO THREAD WIRE, A #4F POWER MIDLINE WAS PLACED IN THE RIGHT BASILIC. LINE WAS TRIMMED TO 15CM AND ADVANCED WITHOUT DIFFICULTY. SECURED AND RELEASED FOR USE
[2020-04-22 17:25] VITALS: BP 196/92
[2020-04-22 22:59] VITALS: BP 182/91
[2020-04-22 23:28] VITALS: BP 186/90
[2020-04-22] MEDS ORDERED: LORCET 5-325 M1 EACH PO (23:49)
--- NOTE | 2020-04-23 01:23 | NUR ---
RECIEVED PT FROM ED, UPON ARRIVAL TO UNIT PT ALERT ORIENTED X4 , PLACED CAREDIAC MONITOR ON SHOWS NSR . LUNG SOUNDS WITH AUDIBLE WHEEZES, VSS. PT C/O BACK PAIN , CALLED AND PAIN MEDICATON ORDERED. DISCUSSED PLAN OF CARE PT VERBALIZED UNDERSTANDING AND AGREEABLE.
[2020-04-23 05:41] VITALS: BP 172/82
[2020-04-23 06:26] LABS: ABSOLUTE NEUTROPHILS 11.5 thou/uL (1.4-8.2); BASOPHILS 0.1 % (0.0-2.0); HEMATOCRIT 31.5 % (37.0-47.0); HEMOGLOBIN 9.8 gm/dL (12.0-15.0); LYMPHOCYTES 4.2 % (24.0-44.0); MCH 25.4 pg (26.0-34.0); MCHC 31.1 g/dL (28.0-37.0); MCV 81.6 fL (80.0-100.0); MONOCYTES 1.3 % (1.0-8.0); PLATELET COUNT 164 thou/uL (150-400); POLYS 94.4 % (36.0-66.0); RBC 3.85 mil/uL (4.20-5.00); RDW 16.2 % (10.5-14.5); WBC 12.1 thou/uL (4.0-11.0)
[2020-04-23 06:30] LABS: APTT 38.7 Seconds (24.5-32.8); INR 1.1; PROTIME 10.9 Seconds (9.3-11.4)
[2020-04-23 06:49] LABS: ALBUMIN 2.7 g/dL (3.4-5.0); CALCIUM 9.1 mg/dL (8.5-10.1); CREATININE 0.7 mg/dL (0.6-1.0); MAGNESIUM 1.7 mg/dL (1.8-2.4); POTASSIUM 3.7 mmol/L (3.5-5.1); TOTAL BILIRUBIN 0.4 mg/dL (0.2-1.0); TOTAL PROTEIN 6.1 g/dL (6.4-8.2)
[2020-04-23 08:00] VITALS: BP 166/87
[2020-04-23 09:42] LABS: BE(vivo) 6.2 mmol/L (-2 to +3); HCO3 31.8 mmol/L (22.0-26.0); PCO2 50.9 mmHg (35.0-45.0); PO2 133.5 mmHg (80.0-100.0); pH 7.414 (7.360-7.450); sO2 98.7 % (92.0-98.0)
[2020-04-23 11:52] VITALS: BP 146/81
[2020-04-23 15:24] VITALS: BP 138/75
--- NOTE | 2020-04-23 16:46 | NUR ---
INITIAL ASSESSMENT: Received consult for discharge planning. MARIAMA reviewed chart and spoke with nursing and attending physician. Pt was admitted from home due to COPD exacerbation. Pt placed in Enhanced Isolation to r/o COVID-19. Pt's test is negative. Pt is on 5L of O2 and on IV abx and IV steroids. Pt known to SW from previous hospitalizations. SW spoke with pt via phone. Introduced role of SW. Pt is alert/orientated. Pt lives at home with her son and dtr in law. Pt has a walker and home O2. Pt has a concentrator and uses O2 only at nighttime. Pt states she has had the home O2 equipment for about 10 years and that [employer] stopped billing her. Pt interested in getting a portable concentrator. SW discussed with pt that she will have to qualify and see what her insurance covers. Pt is agreeable with using [employer] again. Pt has used [facility] in the past, and has been to [facility], and [facility]. Pt's PCP is Dr. Luis Alberto Lancaster. Therapy ordered to evaluate pt for discharge needs. Pt states she does not want to go anywhere for rehab and wants to go home. SW is following to assist as needed with discharge planning.
--- NOTE | 2020-04-23 18:38 | NUR ---
PT CARE ASSUMED AT 0700, PT ALERT AND ORIENTED X3, FORGETFUL AT TIMES. PT DENIES ANY CHEST PAIN, NAUSEA AND VOMITTING. COMPLAINS OF BACK PAIN, PAIN MED GIVEN PER ORDER. PT IS ON 3L OF OXYGEN AT MOMENT, NORMAL WEARS 5L AT HOME. SOB WITH EXERTION, WHEEZING AT TIMES. PT IS UP WITH ONE ASSIST, FALL PRECAUTIONS IN PLACE. WILL CONTINUE TO MONITOR.
[2020-04-23 19:30] VITALS: BP 154/93
[2020-04-24 03:18] VITALS: BP 145/74
--- NOTE | 2020-04-24 06:24 | NUR ---
PT PROGRESSING WELL TOWARDS D/C GOALS. VSS AFEBRILE THIS AM. NSR ON MONITOR UNLABORED ON 3LNC. INC OF URINE IN LG AMTS DESPITE PURE WICK SYSTEM. BED DOWN CALL LIGHT IN REACH. BED ALARM ON.
[2020-04-24 07:30] VITALS: BP 157/100
[2020-04-24 11:18] VITALS: BP 146/74
[2020-04-24 15:53] VITALS: BP 153/66
--- NOTE | 2020-04-24 16:56 | NUR ---
PT CARE ASSUMED AT 0700, PT ALERT AND OREINTED X4, FORGETFUL AT TIMES. PT DENIES ANY CHEST PAIN, NAUSEA AND VOMITTING. PT IS ON 5L OF OXYGEN, SOB WITH EXERTION. UP WITH ONE ASSIST, FALL RECAUTIONS IN PLACE. WILL CONTINUE TO MONITOR.
[2020-04-24 19:49] VITALS: BP 179/59
--- NOTE | 2020-04-25 04:56 | NUR ---
Pt. rested quietly during the night when checked on during frequent rounds. She was c/o dry nasal passages with a non-productive cough. Pt. requesting meds for these symptoms. Emilia BRANDT called and new orders for saline gel and mucinex (see cpoe). Bed alarm is on.
[2020-04-25 05:28] VITALS: BP 194/94
[2020-04-25 06:32] LABS: HEMATOCRIT 35.6 % (37.0-47.0); HEMOGLOBIN 11.1 gm/dL (12.0-15.0); MCH 25.7 pg (26.0-34.0); MCHC 31.2 g/dL (28.0-37.0); MCV 82.5 fL (80.0-100.0); RBC 4.32 mil/uL (4.20-5.00); RDW 16.7 % (10.5-14.5); WBC 8.2 thou/uL (4.0-11.0)
[2020-04-25 06:37] LABS: CALCIUM 9.8 mg/dL (8.5-10.1); POTASSIUM 3.8 mmol/L (3.5-5.1)
[2020-04-25 08:30] VITALS: BP 171/82
[2020-04-25 09:05] LABS: URINE BILIRUBIN NEGATIVE (Negative); URINE BLOOD NEGATIVE (Negative); URINE COLOR YELLOW; URINE GLUCOSE-RANDOM* NEGATIVE (Negative); URINE KETONES NEGATIVE (Negative); URINE LEUKOCYTES-REFLEX NEGATIVE (Negative); URINE NITRITE-REFLEX NEGATIVE (Negative); URINE PROTEIN (DIPSTICK) NEGATIVE (Negative); URINE UROBILINOGEN 0.2 E.U./dl (0.2-1.0)
[2020-04-25 09:07] LABS: URINE CLARITY SL HAZY
[2020-04-25 11:25] VITALS: BP 173/87
--- NOTE | 2020-04-25 11:33 | NUR ---
PT CARE ASSUMED AT 0700, PT ALERT AND ORIENTED X4, FORGETFUL AT TIMES. PT DENIES CHEST PAIN, NAUSEA AND VOMITTING. PT IS ON 4L OF OXYGEN, SOB WITH EXERTIONS. PT LUNGS SOUNDS COARSE AND WHEEZY. DR. BECERRA AWARE ABOUT PT CHEST XRAY. DENIES ANY NEEDS ETHEL. FALL PRECAUTIONS IN PLACE, WILL CONTINUE TO MONITOR.
--- NOTE | 2020-04-25 15:25 | NUR ---
SW reviewed chart and spoke with nursing and attending physician. Enhanced Isolation precautions have been discontinued. Pt is on 4-5L of O2 and is on IV abx and IV steroids. [facility] consulted and can accept pt if she is agreeable with going to [facility]. Pt wanting to discuss with her son. [facility] liaison to also reach out to family. SW placed call to pt's room. No answer. MARIAMA is following to assist as needed with discharge planning.
[2020-04-25 16:23] VITALS: BP 191/87
--- NOTE | 2020-04-25 16:37 | NUR ---
PATIENT SEEN BY DR. TAMAYO THIS DATE FOR REHAB CONSULT. PATIENT IS A CANDIDATE FOR ACUTE REHAB AND CAN BE ACCEPTED TO [facility] WHEN MEDICALLY READY. FEED ELEVATOR WORKER SPOKE WITH PATIENT'S SON WHO IS IN AGREEMENT THAT PATIENT NEEDS CONTINUED REHAB PRIOR TO COMIING BACK HOME AND SON WOULD LIKE PATIENT TO COME TO [facility] AT DISCHARGE FROM ACUTE HOSPITAL. MUSIC EDUCATOR INFORMED.
--- NOTE | 2020-04-25 16:54 | NUR ---
1640 PT BP 191/, RECHECKED IT AGAIN IT WAS 191/. HR 80'S. DR. BECERRA PAGED. WAITING FOR ORDERS. 1657 DR. BECERRA CALLED, NEW ORDERS IN.
[2020-04-25 19:53] VITALS: BP 165/62
--- NOTE | 2020-04-26 01:29 | NUR ---
PATIENT TRANSFERRED TO AROUND 2200. PATIENT A/0X 4. PATIENT 02NC ON AT 3L. SHE USES 5L AT HOME. PATIENT HAS MULTIPLE BRUISES OVER HER ABDOMEN AND THIGHS FROM INJECTIONS. PATIENT DENIES PAIN. LUNGS ARE COARSE BILATERALLY AND PATIENT DOES HAVE SCHEDULED RT'S TO HELP BREATHING. PATIENT'S COVID PCR WAS NEGATIVE 04/25/20. PATIENT'S VITALS STABLE AT 155/65 P74 R18 T98.7. EXTERNAL CATHETER APPLIED. PATIENT WITH REDNESS THAT APPEARS YEAST UNDER HER BREASTS BILATERALLY. PATIENT HAS ACUCHECKS ACHS. SHE HAS RIGHT UPPER ARM MIDLINE SALINE LOCK THAT IS IN PLACE WITHOUT REDNESS OR SWELLING. PATIENT LIVES AT HOME AND HER SON LIVES WITH HER. PATIENT PLEASANT AND COOPERATIVE. PATIENT DX IS COPD EXACERBATION AND ACUTE RESPIRATORY FAILURE. PATIENT DOES HAVE SIDERAILS UP X 4 AND BED ALARM IS ON. BED IN LOW POSITION. PATIENT CAN GET UP WITH ASSIST TO BSC X1-2. PATIENT HAS 2+ EDEMA IN LEFT LE AND 1+ IN RIGHT LE. PATIENT SLEEPING AT THIS TIME. WILL CONTINUE TO MONITOR.
[2020-04-26 05:11] VITALS: BP 144/73
[2020-04-26 05:12] VITALS: BP 144/73
[2020-04-26 06:14] LABS: HEMATOCRIT 33.3 % (37.0-47.0); HEMOGLOBIN 10.5 gm/dL (12.0-15.0); MCH 25.9 pg (26.0-34.0); MCHC 31.5 g/dL (28.0-37.0); MCV 82.2 fL (80.0-100.0); RBC 4.05 mil/uL (4.20-5.00); RDW 16.2 % (10.5-14.5); WBC 6.9 thou/uL (4.0-11.0)
[2020-04-26 06:28] LABS: CALCIUM 8.8 mg/dL (8.5-10.1); CREATININE 0.7 mg/dL (0.6-1.0)
[2020-04-26 08:12] VITALS: BP 177/91
--- NOTE | 2020-04-26 11:07 | NUR ---
[facility] HAD ASSESED PT FOR POSSIBLE ADMISSION. THEY ARE ABLE TO ACCEPT. PT WAS TO SPEAK WITH HER FAMILY ABOUT POSSIBLE ADMISSION. CM FOLLOWED UP WITH PT THIS AM AND SHE INDICATED THAT SHE WANTED TO RETURN HOME AND HOPED TO DISCHARGE HOME TODAY. CM CALLED HER SON GUILLAUME SCOTT AND LEFT A VM. CARE TEAM INDICATED THAT THEY WANT TO DO A REPEAT CHEST XRAY. CM TO FOLLOW INDICATED WITH DC PLANNING. POSSIBLE ADMISSION TO [facility] THIS DAY.
[2020-04-26 18:47] VITALS: BP 140/68
[2020-04-26 19:36] VITALS: BP 139/58
[2020-04-27] VITALS (10 sets, daily range): BP systolic 138–157; BP diastolic 77–78
--- NOTE | 2020-04-27 03:20 | NUR ---
Patient progressing towards outcome goals. Vital signs and rhythm stable. Patient refuses rehab, states she feels like she is back to her baseline and prefers to go home.
[2020-04-27 06:31] LABS: HEMATOCRIT 31.5 % (37.0-47.0); HEMOGLOBIN 9.9 gm/dL (12.0-15.0); MCH 25.7 pg (26.0-34.0); MCHC 31.5 g/dL (28.0-37.0); MCV 81.5 fL (80.0-100.0); RBC 3.86 mil/uL (4.20-5.00); RDW 15.8 % (10.5-14.5); WBC 5.3 thou/uL (4.0-11.0)
[2020-04-27 06:45] LABS: CALCIUM 9.4 mg/dL (8.5-10.1); CREATININE 0.8 mg/dL (0.6-1.0); MAGNESIUM 2.2 mg/dL (1.8-2.4); POTASSIUM 3.5 mmol/L (3.5-5.1)
--- NOTE | 2020-04-27 09:59 | NUR ---
CM CALLED AND SPOKE WITH [facility] TO FOLLOW UP ON REFERRAL THAT WAS SENT YESTERDAY AND THEY AREN'T ABLE TO ACCEPT PT BACK ON THEIR SERVICES. REFERRALS TO BE SENT ELSEWHERE FOR HH SERVIVRS. ANTIPATE THAT PT WILL BE ABLE TO DC HOME THIS DAY. CM TO FOLLOW INDICATED WITH DC PLANNING.
[2020-04-27] MEDS ORDERED: AMLODIPINE BESY10 MG PO (10:17)
[2020-04-27] MEDS ORDERED: LEVOFLOXACIN750 MG PO (10:18)
[2020-04-27] MEDS ORDERED: PREDNISONE 10 M10 MG PO (10:18)
[2020-04-27] MEDS ORDERED: PROAIR HFA8.5 GM INH (10:20)
[2020-04-27] MEDS ORDERED: SPIRIVA INH (10:20)
--- NOTE | 2020-04-27 12:40 | NUR ---
Assumed pt care at 7am.Pt in bed sound asleep at the beginning of shift with o2 on.Assessment completed.vss.Pt took all meds with breakfast and well tolerated.Dr Dietrich here,dc order noted.assistant sales center manager arranged for home health.Dc summary compile and reviewed with pt. Rx faxed to pt pharmacy. At 1235,pt dc home with family in accompanied by lap cutter truer operator.
--- NOTE | 2020-04-27 13:20 | NUR ---
PT DISCHARGING TODAY TO [facility] WITH HH FAXED REFERRAL TO [facility] SPOKE WITH [facility] IN INTAKE THEY CAN ACCEPT FAXED DC ORDERS/SUMMARY RECEIVED CONFIRMATION AND [facility] WILL CALL TO ARRANGE VISITS.
== END 2020-04-27 12:57 | disposition home health service (06) | DRG 871 ==
LOC: ER 07:13 → EROBS 11:31 → 3W 11:31 → 4W 04-25 21:56
PROVIDERS: Emergency Medicine; Internal Medicine; Internal Medicine Pulmonary Disease; ADMIT Internal Medicine; ATTEND Internal Medicine
PROC: 05HB33Z Insertion of Infusion Device into Right Basilic Vein, Percutaneous Approach (ICD-10-PCS; principal; 2020-04-22)
DX: A41.9 Sepsis, unspecified organism (principal); J18.9 Pneumonia, unspecified organism; J96.21 Acute and chronic respiratory failure with hypoxia; J96.22 Acute and chronic respiratory failure with hypercapnia; E43 Unspecified severe protein-calorie malnutrition; J44.1 Chronic obstructive pulmonary disease with (acute) exacerbation; E87.0 Hyperosmolality and hypernatremia; J44.0 Chronic obstructive pulmonary disease with (acute) lower respiratory infection; I16.0 Hypertensive urgency; E78.5 Hyperlipidemia, unspecified; I50.9 Heart failure, unspecified; F32.9 Major depressive disorder, single episode, unspecified; F41.9 Anxiety disorder, unspecified; G89.29 Other chronic pain; M54.9 Dorsalgia, unspecified; I27.20 Pulmonary hypertension, unspecified; E11.51 Type 2 diabetes mellitus with diabetic peripheral angiopathy without gangrene; E66.01 Morbid (severe) obesity due to excess calories; M79.7 Fibromyalgia; I11.0 Hypertensive heart disease with heart failure; D64.9 Anemia, unspecified; Z20.828 Contact with and (suspected) exposure to other viral communicable diseases; Z90.710 Acquired absence of both cervix and uterus; Z86.73 Personal history of transient ischemic attack (TIA), and cerebral infarction without residual deficits; Z68.38 Body mass index [BMI] 38.0-38.9, adult
CPT/HCPCS: 10045; 10879; 27000